=== PATIENT | male | born 1960 | race Caucasian/White ===

== ENCOUNTER → 2016-10-04 | Outpatient (REF) | payer OTHER | LOC: M SFHCCLAY 14:47 | PROVIDERS: ATTEND Physician Assistant | DX: R35.1 Nocturia (principal) ==

== ENCOUNTER → 2016-10-04 | Outpatient (REF) | payer OTHER ==
[2016-10-04 19:35] LABS: FOLATE 10.7 NG/ML (>5.4)
== END ==
LOC: M LABDRAWC 16:28
PROVIDERS: ATTEND Internal Medicine Endocrinology, Diabetes & Metabolism
DX: E11.9 Type 2 diabetes mellitus without complications (principal)

== ENCOUNTER → 2017-03-30 | Outpatient (REF) | payer OTHER ==
[2017-03-30 20:05] LABS: BASO % 0.6 % (0.0-1.0); EOS # 0.1 K/mm3 (0.0-0.50); EOS % 2.9 % (0.0-3.0); LARGE UNSTAINED CELL # 0.3 K/mm3 (0.0-0.4); LARGE UNSTAINED CELL % 7.3 % (0.0-4.0); LYMPH # 0.9 K/mm3 (1.5-4.5); LYMPH % 24.1 % (24.0-44.0); MEAN CORPUSCULAR HEMOGLOBIN 33.7 pg (27.0-33.0); MEAN CORPUSCULAR HGB CONC 36.4 g/dl (32.0-36.5); MEAN CORPUSCULAR VOLUME 92.5 fl (80.0-96.0); MONO # 0.4 K/mm3 (0.0-0.8); MONO % 10.2 % (0.0-5.0); NEUTROPHILS # 2.1 K/mm3 (1.8-7.7); PLATELET COUNT, AUTOMATED 119 k/mm3 (150-450); RED CELL DISTRIBUTION WIDTH 12.3 % (11.5-14.5); WHITE BLOOD COUNT 3.8 K/mm3 (4.0-10.0)
[2017-03-30 20:20] LABS: ALBUMIN 4.1 GM/DL (3.2-5.2); ALBUMIN/GLOBULIN RATIO 1.24 (1.00-1.93); ALKALINE PHOSPHATASE 91 U/L (45-117); ALT/SGPT 163 U/L (12-78); ANION GAP 13 MEQ/L (8-16); AST/SGOT 131 U/L (15-37); BILIRUBIN,TOTAL 1.7 MG/DL (0.2-1.0); BLOOD UREA NITROGEN 10 MG/DL (7-18); CALCIUM LEVEL 9.4 MG/DL (8.5-10.1); CARBON DIOXIDE LEVEL 30 MEQ/L (21-32); CHLORIDE LEVEL 96 MEQ/L (98-107); CHOLESTEROL LEVEL 201 MG/DL (<200); FREE T4 1.22 NG/DL (0.76-1.46); GLOMERULAR FILTRATION RATE > 60.0 (>56); GLUCOSE, FASTING 135 MG/DL (70-105); POTASSIUM SERUM 3.1 MEQ/L (3.5-5.1); SODIUM LEVEL 139 MEQ/L (136-145); TOTAL PROTEIN 7.4 GM/DL (6.4-8.2); TRIGLYCERIDES LEVEL 268 MG/DL (<150)
== END ==
LOC: M SFHCCLAY 09:56
PROVIDERS: ATTEND Physician Assistant
DX: E78.1 Pure hyperglyceridemia (principal); I10 Essential (primary) hypertension; E11.9 Type 2 diabetes mellitus without complications

== ENCOUNTER → 2017-05-03 | Outpatient (REF) | payer OTHER | LOC: M SMT 16:51 | PROVIDERS: ATTEND Nurse Practitioner Women's Health | DX: R39.15 Urgency of urination (principal) ==

== ENCOUNTER → 2017-07-12 | Outpatient (REF) | payer OTHER ==
[2017-07-12 17:00] LABS: BASO # 0.1 10^3/uL (0.0-0.2); BASO % 1.1 % (0.0-1.0); EOS # 0.1 10^3/uL (0.0-0.50); EOS % 2.6 % (0.0-3.0); IMMATURE GRANULOCYTE % 0.2 % (0-0); LYMPH # 0.8 10^3/uL (1.5-4.5); LYMPH % 16.5 % (24.0-44.0); MEAN CORPUSCULAR HEMOGLOBIN 32.4 pg (27.0-33.0); MEAN CORPUSCULAR HGB CONC 35.2 g/dl (32.0-36.5); MONO # 0.7 10^3/uL (0.0-0.8); MONO % 15.6 % (0.0-5.0); NEUTROPHILS # 2.9 10^3/uL (1.8-7.7); PLATELET COUNT, AUTOMATED 114 10^3/uL (150-450); RED CELL DISTRIBUTION WIDTH 12.4 % (11.5-14.5); WHITE BLOOD COUNT 4.5 10^3/uL (4.0-10.0)
[2017-07-12 17:14] LABS: ALBUMIN 4.2 GM/DL (3.2-5.2); ALBUMIN/GLOBULIN RATIO 1.24 (1.00-1.93); ALKALINE PHOSPHATASE 83 U/L (45-117); ALT/SGPT 215 U/L (12-78); ANION GAP 11 MEQ/L (8-16); AST/SGOT 198 U/L (7-37); BILIRUBIN,TOTAL 1.8 MG/DL (0.2-1.0); BLOOD UREA NITROGEN 13 MG/DL (7-18); CALCIUM LEVEL 9.5 MG/DL (8.5-10.1); CARBON DIOXIDE LEVEL 33 MEQ/L (21-32); CHLORIDE LEVEL 97 MEQ/L (98-107); CREATININE FOR GFR 0.56 MG/DL (0.70-1.30); GLOMERULAR FILTRATION RATE > 60.0 (>56); GLUCOSE, FASTING 101 MG/DL (70-105); SODIUM LEVEL 141 MEQ/L (136-145); TOTAL PROTEIN 7.6 GM/DL (6.4-8.2)
== END ==
LOC: M SFHCCAPE 11:05
PROVIDERS: ATTEND Physician Assistant
DX: E87.6 Hypokalemia (principal); Z11.59 Encounter for screening for other viral diseases; Z11.4 Encounter for screening for human immunodeficiency virus [HIV]; E11.40 Type 2 diabetes mellitus with diabetic neuropathy, unspecified; R79.89 Other specified abnormal findings of blood chemistry

== ENCOUNTER → 2017-08-02 | Outpatient (REF) | payer OTHER ==
[2017-08-02 16:39] LABS: ALBUMIN 4.4 GM/DL (3.2-5.2); ALBUMIN/GLOBULIN RATIO 1.42 (1.00-1.93); ALKALINE PHOSPHATASE 95 U/L (45-117); ALT/SGPT 73 U/L (12-78); ANION GAP 15 MEQ/L (8-16); AST/SGOT 93 U/L (7-37); BILIRUBIN,TOTAL 3.8 MG/DL (0.2-1.0); BLOOD UREA NITROGEN 20 MG/DL (7-18); CALCIUM LEVEL 8.9 MG/DL (8.5-10.1); CARBON DIOXIDE LEVEL 29 MEQ/L (21-32); CHLORIDE LEVEL 91 MEQ/L (98-107); CREATININE FOR GFR 1.07 MG/DL (0.70-1.30); GLOMERULAR FILTRATION RATE > 60.0 (>56); GLUCOSE, FASTING 218 MG/DL (70-105); SODIUM LEVEL 135 MEQ/L (136-145); TOTAL PROTEIN 7.5 GM/DL (6.4-8.2)
[2017-08-02 16:56] LABS: POTASSIUM SERUM 2.7 MEQ/L (3.5-5.1)
== END ==
LOC: M SFHCCAPE 09:07
DX: E87.6 Hypokalemia (principal)
CPT/HCPCS: 80053

== ENCOUNTER → 2017-08-18 | Outpatient (REF) | payer OTHER ==
[2017-08-18 17:19] LABS: INR 1.03; PROTHROMBIN TIME 13.6 SECONDS (12.4-14.5)
[2017-08-18 17:20] LABS: PARTIAL THROMBOPLASTIN TIME 37.8 SECONDS (26.8-37.9)
[2017-08-18 17:54] LABS: ALBUMIN 4.3 GM/DL (3.2-5.2); ALBUMIN/GLOBULIN RATIO 1.26 (1.00-1.93); ALKALINE PHOSPHATASE 94 U/L (45-117); ALT/SGPT 192 U/L (12-78); AST/SGOT 131 U/L (7-37); BILIRUBIN,DIRECT 0.5 MG/DL (0.0-0.2); BILIRUBIN,TOTAL 1.2 MG/DL (0.2-1.0); FERRITIN 130 NG/ML (26-388); IRON (FE) 105 UG/DL (65-175); PERCENT SATURATION 24.6 % (19.7-50.0); TOTAL IRON BINDING CAPACITY 427 UG/DL (250-450); TOTAL PROTEIN 7.7 GM/DL (6.4-8.2)
[2017-08-19 10:04] LABS: HEPATITIS B SURFACE ANTIBODY NEGATIVE (POSITIVE)
== END ==
LOC: M LAB REF 17:00
DX: R94.5 Abnormal results of liver function studies (principal)

== ENCOUNTER → 2017-08-23 | Outpatient (REF) | payer OTHER ==
[2017-08-23 19:11] LABS: ANION GAP 7 MEQ/L (8-16); BLOOD UREA NITROGEN 16 MG/DL (7-18); CALCIUM LEVEL 9.5 MG/DL (8.5-10.1); CARBON DIOXIDE LEVEL 31 MEQ/L (21-32); CHLORIDE LEVEL 102 MEQ/L (98-107); CREATININE FOR GFR 0.73 MG/DL (0.70-1.30); GLOMERULAR FILTRATION RATE > 60.0 (>56); GLUCOSE, FASTING 86 MG/DL (70-100); POTASSIUM SERUM 3.9 MEQ/L (3.5-5.1); SODIUM LEVEL 140 MEQ/L (136-145)
== END ==
LOC: M SFHCCAPE 10:57
DX: E87.6 Hypokalemia (principal)
CPT/HCPCS: 80048

== ENCOUNTER → 2017-08-25 | Outpatient (REF) | payer OTHER ==
[2017-08-25 21:08] LABS: HEMATOCRIT 47.5 % (42.0-52.0)
[2017-08-26 10:55] LABS: FOLATE 8.7 NG/ML; VITAMIN B12 LEVEL 609 PG/ML
[2017-08-26 12:51] LABS: PRETREATED FOLATE FOR RBCFOL 13.8 NG/ML; RBC FOLATE 610.1 NG/ML (280-791)
[2017-08-27 15:10] LABS: ANTINUCLEAR ANTIBODIES DIRECT Negative (Negative)
== END ==
LOC: M LAB REF 17:39
DX: D69.6 Thrombocytopenia, unspecified (principal)

== ENCOUNTER 2017-09-27 07:01 | Day surgery (SDC) | payer OTHER ==
[2017-09-27] MEDS ORDERED: PROPOFOL 200 MG/20 ML VIAL As Ordered (07:24)
[2017-09-27] MEDS ORDERED: NS 1,000 ML IV (07:45)
[2017-09-27 07:49] LABS: BEDSIDE GLUCOSE 94 MG/DL (70-105)
[2017-09-27] MEDS ORDERED: LIDOCAINE 2% INJ 100 MG/5 ML SDV (FOR ANES.) As Ordered (07:59)
== END 2017-09-27 09:45 | disposition home or self-care (01) ==
LOC: M OPP 07:01
DX: Z12.11 Encounter for screening for malignant neoplasm of colon (principal); K64.8 Other hemorrhoids; I10 Essential (primary) hypertension; R01.1 Cardiac murmur, unspecified; E11.9 Type 2 diabetes mellitus without complications; M10.9 Gout, unspecified; K21.9 Gastro-esophageal reflux disease without esophagitis; R12 Heartburn; M19.90 Unspecified osteoarthritis, unspecified site; L40.9 Psoriasis, unspecified; G62.9 Polyneuropathy, unspecified; G47.00 Insomnia, unspecified; R06.83 Snoring; F10.11 Alcohol abuse, in remission; R39.15 Urgency of urination; Z87.891 Personal history of nicotine dependence; Z79.899 Other long term (current) drug therapy; Z79.4 Long term (current) use of insulin; Z80.8 Family history of malignant neoplasm of other organs or systems
CPT/HCPCS: 45378

== ENCOUNTER → 2017-10-12 | Outpatient (REF) | payer OTHER ==
[2017-10-12 17:58] LABS: ALBUMIN 4.2 GM/DL (3.2-5.2); ALBUMIN/GLOBULIN RATIO 1.31 (1.00-1.93); ALKALINE PHOSPHATASE 96 U/L (45-117); ALT/SGPT 30 U/L (12-78); ANION GAP 9 MEQ/L (8-16); AST/SGOT 28 U/L (7-37); BILIRUBIN,DIRECT 0.3 MG/DL (0.0-0.2); BILIRUBIN,TOTAL 1.1 MG/DL (0.2-1.0); BLOOD UREA NITROGEN 21 MG/DL (7-18); CALCIUM LEVEL 9.1 MG/DL (8.5-10.1); CARBON DIOXIDE LEVEL 29 MEQ/L (21-32); CHLORIDE LEVEL 103 MEQ/L (98-107); CREATININE FOR GFR 0.74 MG/DL (0.70-1.30); GLOMERULAR FILTRATION RATE > 60.0 (>56); GLUCOSE, FASTING 97 MG/DL (70-100); PHOSPHORUS LEVEL 3.6 MG/DL (2.5-4.9); POTASSIUM SERUM 3.5 MEQ/L (3.5-5.1); RHEUMATOID FACTOR QUANT < 10.0 IU/ML (<15.0); SODIUM LEVEL 141 MEQ/L (136-145); TOTAL PROTEIN 7.4 GM/DL (6.4-8.2)
[2017-10-12 18:23] LABS: APPEARANCE, URINE CLEAR (CLEAR); BACTERIA, URINE AUTO NEGATIVE (NEGATIVE); BILIRUBIN, URINE AUTO NEGATIVE (NEGATIVE); BLOOD, URINE BLOOD NEGATIVE (NEGATIVE); COLOR, URINE YELLOW (YELLOW); GLUCOSE, URINE (UA) AUTO 2+ mg/dL (NEGATIVE); KETONE, URINE AUTO NEGATIVE (NEGATIVE); LEUKOCYTE ESTERASE, URINE AUTO NEGATIVE (NEGATIVE); NITRITE, URINE AUTO NEGATIVE (NEGATIVE); PROTEIN, URINE AUTO NEGATIVE (NEGATIVE); RBC, URINE AUTO 0 /HPF (0-3); SPECIFIC GRAVITY URINE AUTO 1.016 (1.002-1.035); SQUAMOUS EPITHELIAL CELL UR AU 0 /HPF (0-6); UROBILINOGEN, URINE AUTO 0.2 mg/dL (0.0-2.0); WBC, URINE AUTO 0 /HPF (0-3)
[2017-10-12 18:36] LABS: BASO % 0.6 % (0.0-1.0); EOS # 0.2 10^3/uL (0.0-0.50); EOS % 3.9 % (0.0-3.0); HEMATOCRIT 43.7 % (42.0-52.0); HEMOGLOBIN 15.2 g/dl (14.0-18.0); IMMATURE GRANULOCYTE % 0.2 % (0-3.0); LYMPH # 1.2 10^3/uL (1.5-4.5); LYMPH % 22.5 % (24.0-44.0); MEAN CORPUSCULAR HEMOGLOBIN 29.6 pg (27.0-33.0); MEAN CORPUSCULAR HGB CONC 34.8 g/dl (32.0-36.5); MEAN CORPUSCULAR VOLUME 85.2 fl (80.0-96.0); MONO # 0.8 10^3/uL (0.0-0.8); MONO % 14.9 % (0.0-5.0); NEUTROPHILS % 57.9 % (36.0-66.0); PLATELET COUNT, AUTOMATED 126 10^3/uL (150-450); RED BLOOD COUNT 5.13 10^6/uL (4.30-6.10); RED CELL DISTRIBUTION WIDTH 11.5 % (11.5-14.5); WHITE BLOOD COUNT 5.2 10^3/uL (4.0-10.0)
[2017-10-12 19:41] LABS: ERYTHROCYTE SEDIMENTATION RATE 4 mm/hr (0-20)
[2017-10-15 00:07] LABS: ANGIOTENSIN 1 CONVERTING ENZYM 4 U/L (14-82); ANTI DOUBLE STRAND-DNA AB 1 IU/mL (0-9); ANTINUCLEAR ANTIBODIES DIRECT Negative (Negative); SJOGREN'S ANTI SS-A <0.2 AI (0.0-0.9); SJOGREN'S ANTI SS-B <0.2 AI (0.0-0.9)
== END ==
LOC: M LABDRWCV 16:39
DX: L92.8 Other granulomatous disorders of the skin and subcutaneous tissue (principal)

== ENCOUNTER → 2017-11-15 | Outpatient (REF) | payer OTHER ==
[2017-11-15 18:40] LABS: HEMATOCRIT 43.5 % (42.0-52.0); HEMOGLOBIN 14.9 g/dl (13.5-17.5); MEAN CORPUSCULAR HEMOGLOBIN 28.9 pg (27.0-33.0); MEAN CORPUSCULAR HGB CONC 34.3 g/dl (32.0-36.5); MEAN CORPUSCULAR VOLUME 84.5 fl (80.0-96.0); PLATELET COUNT, AUTOMATED 139 10^3/uL (150-450); RED BLOOD COUNT 5.15 10^6/uL (4.30-6.10); RED CELL DISTRIBUTION WIDTH 12.3 % (11.5-14.5); WHITE BLOOD COUNT 4.6 10^3/uL (4.0-10.0)
[2017-11-15 18:57] LABS: ALBUMIN 3.8 GM/DL (3.2-5.2); ALBUMIN/GLOBULIN RATIO 1.15 (1.00-1.93); ALKALINE PHOSPHATASE 99 U/L (45-117); ALT/SGPT 25 U/L (12-78); ANION GAP 7 MEQ/L (8-16); AST/SGOT 26 U/L (7-37); BILIRUBIN,TOTAL 0.7 MG/DL (0.2-1.0); BLOOD UREA NITROGEN 10 MG/DL (7-18); CALCIUM LEVEL 9.1 MG/DL (8.5-10.1); CARBON DIOXIDE LEVEL 30 MEQ/L (21-32); CHLORIDE LEVEL 105 MEQ/L (98-107); CHOLESTEROL LEVEL 172 MG/DL (<200); CHOLESTEROL RISK RATIO 4.648 (<5); CREATININE FOR GFR 0.68 MG/DL (0.70-1.30); GLOMERULAR FILTRATION RATE > 60.0 (>56); GLUCOSE, FASTING 129 MG/DL (70-100); HDL CHOLESTEROL 37 MG/DL (>40); NON-HDL-C 135 MG/DL; POTASSIUM SERUM 3.6 MEQ/L (3.5-5.1); SODIUM LEVEL 142 MEQ/L (136-145); TOTAL PROTEIN 7.1 GM/DL (6.4-8.2); TRIGLYCERIDES LEVEL 150 MG/DL (<150)
== END ==
LOC: M LABDRAWC 16:40
DX: E11.21 Type 2 diabetes mellitus with diabetic nephropathy (principal)

== ENCOUNTER → 2017-11-16 | Outpatient (REF) | payer OTHER ==
[2017-11-16 20:02] LABS: MALB URINE SIEMENS 6.4 MG/L
[2017-11-16 20:31] LABS: MAU 24HR URINE 8.3 MG/24HR (0.0-30.0); MAU/MINUTE 5.8 MCG/MIN (0.0-20.0); TOTAL VOLUME, URINE 1300 ML
== END ==
LOC: M LAB REF 16:39
DX: E11.21 Type 2 diabetes mellitus with diabetic nephropathy (principal)

== ENCOUNTER → 2017-11-22 | Outpatient (REF) | payer OTHER | LOC: M LAB REF 15:31 | DX: D48.5 Neoplasm of uncertain behavior of skin (principal) ==

== ENCOUNTER → 2018-08-03 | Outpatient (REF) | payer OTHER ==
[~2018-08-03] MED LIST: CHLO125TA; DULO1CAP3; JARD1TAB3; LANTINJ4; LYRI200C; METF10004; OMEP20CA3; POTA1TAB23; QUIN1TAB4; VICT18IN; ZOLP10TA2
[2018-08-03 17:51] LABS: APPEARANCE, URINE CLEAR (CLEAR); BACTERIA, URINE AUTO NEGATIVE (NEGATIVE); BILIRUBIN, URINE AUTO NEGATIVE (NEGATIVE); BLOOD, URINE BLOOD NEGATIVE (NEGATIVE); COLOR, URINE YELLOW (YELLOW); GLUCOSE, URINE (UA) AUTO 3+ mg/dL (NEGATIVE); KETONE, URINE AUTO NEGATIVE (NEGATIVE); LEUKOCYTE ESTERASE, URINE AUTO NEGATIVE (NEGATIVE); NITRITE, URINE AUTO NEGATIVE (NEGATIVE); PROTEIN, URINE AUTO NEGATIVE (NEGATIVE); RBC, URINE AUTO 0 /HPF (0-3); SPECIFIC GRAVITY URINE AUTO 1.026 (1.002-1.035); SQUAMOUS EPITHELIAL CELL UR AU 0 /HPF (0-6); UROBILINOGEN, URINE AUTO 0.2 mg/dL (0.0-2.0); WBC, URINE AUTO 0 /HPF (0-3)
[2018-08-03 20:31] LABS: CHLAMYDIA DNA AMPLIFICATION NEGATIVE (NEGATIVE); GC DNA AMPLIFICATION NEGATIVE (NEGATIVE)
== END ==
LOC: M SFHCCAPE 15:02
PROVIDERS: ATTEND Physician Assistant
DX: R30.0 Dysuria (principal)

== ENCOUNTER 2018-09-06 16:05 | Day surgery (SDC) | payer OTHER ==
[~2018-09-06] VITALS: Ht 172.7 cm; Wt 96.0 kg
[2018-09-06 17:37] LABS: BASO % 0.3 % (0.0-1.0); EOS # 0.2 10^3/uL (0.0-0.50); EOS % 1.7 % (0.0-3.0); HEMATOCRIT 46.9 % (42.0-52.0); HEMOGLOBIN 16.4 g/dl (13.5-17.5); LYMPH # 1.3 10^3/uL (1.5-4.5); LYMPH % 9.7 % (24.0-44.0); MEAN CORPUSCULAR HEMOGLOBIN 31.5 pg (27.0-33.0); MEAN CORPUSCULAR VOLUME 90.2 fl (80.0-96.0); MONO # 1.6 10^3/uL (0.0-0.8); MONO % 11.9 % (0.0-5.0); NEUTROPHILS # 10.5 10^3/uL (1.8-7.7); PLATELET COUNT, AUTOMATED 106 10^3/uL (150-450); WHITE BLOOD COUNT 13.8 10^3/uL (4.0-10.0)
[2018-09-06 18:09] LABS: ALBUMIN 4.2 GM/DL (3.2-5.2); ALT/SGPT 30 U/L (12-78); BILIRUBIN,DIRECT 0.7 MG/DL (0.0-0.2); BILIRUBIN,TOTAL 3.5 MG/DL (0.2-1.0); BLOOD UREA NITROGEN 11 MG/DL (7-18); CALCIUM LEVEL 8.9 MG/DL (8.5-10.1); CARBON DIOXIDE LEVEL 33 MEQ/L (21-32); CHLORIDE LEVEL 96 MEQ/L (98-107); CREATININE FOR GFR 0.82 MG/DL (0.70-1.30); GLOMERULAR FILTRATION RATE > 60.0 (>56); GLUCOSE, FASTING 120 MG/DL (70-100); LIPASE 144 U/L (73-393); SODIUM LEVEL 137 MEQ/L (136-145); TOTAL PROTEIN 7.2 GM/DL (6.4-8.2)
[2018-09-06] MEDS ORDERED: KETOROLAC 30 MG/ML VIAL (J1885) IV ONE (19:00)
[2018-09-06] MEDS ORDERED: ISOVUE-370 76% 100ML VIAL (Q9967) As Ordered ONE (19:33)
--- NOTE | 2018-09-06 20:54 | REPVR ---
EXAM: CT Abdomen and Pelvis With Contrast EXAM DATE/TIME: 09/06/2018 7:38 PM CLINICAL HISTORY: 58 years old, male; Pain; Abdominal pain; Additional info: Rlq pain, ? appe TECHNIQUE: Axial computed tomography images of the abdomen and pelvis with intravenous contrast. All CT scans at this facility use at least one of these dose optimization techniques: automated exposure control; mA and/or kV adjustment per patient size (includes targeted exams where dose is matched to clinical indication); or iterative reconstruction. Coronal and sagittal reformatted images were created and reviewed. CONTRAST: 100 ml of ISOVUE 370 administered intravenously. COMPARISON: No relevant prior studies available. FINDINGS: Lower thorax: Scattered nodules are identified within the lungs bilaterally. Within the left lung, there is a 7-8 mm paratracheal nodule on series 204 image 3. ABDOMEN: Liver: There is hypodense fatty infiltration of the liver. Calcific densities are identified posterior to the right hepatic lobe, with possible involvement of the hepatic capsule. Gallbladder and bile ducts: Surgical clips are identified within the gallbladder fossa, compatible with cholecystectomy. Pancreas: Normal. No ductal dilation. Spleen: Splenomegaly. The spleen measures 14.8 cm in length. A splenule is identified posterior to the spleen. Adrenals: No mass. Kidneys and ureters: Nonspecific perinephric stranding bilaterally. No hydronephrosis bilaterally. Stomach and bowel: There is borderline wall thickening and mild distention of the distal ileum, suggestive of enteritis. Appendix: The appendix is distended measuring 1.1 cm in diameter. There is acute periappendiceal stranding and fluid which extends to the paracolic gutter. This is consistent with acute appendicitis. PELVIS: Bladder: Mild nonspecific wall thickening. Reproductive: Unremarkable as visualized. ABDOMEN and PELVIS: Intraperitoneal space: No free air. Bones/joints: Hypertrophic degenerative changes are noted within the spine. There is mild anterior wedging of the T11 vertebral body consistent with a compression fracture/deformity. The acuity of this finding is indeterminate. Mild convexity of the lumbar spine to the left. Soft tissues: Mild herniation of fat into the inguinal canals. There is a 1 cm nodule is noted within the right inguinal canal. Vasculature: There is atherosclerotic calcification of the abdominal aorta and iliac arteries. Lymph nodes: Calcified mediastinal and hilar lymph nodes are visualized, suggestive of granulomatous disease. Mildly enlarged retroperitoneal and intrapelvic lymph nodes are identified. A mildly enlarged right external iliac chain lymph node measures 1.7x 1.0 centimeters. IMPRESSION: 1. The appendix is distended with acute periappendiceal stranding and fluid, consistent with acute appendicitis. 2. There is borderline wall thickening and mild distention of the distal ileum, suggestive of enteritis. 3. Scattered nodules are identified within the lungs bilaterally. A nonemergent chest CT is recommended. 4. There is hypodense fatty infiltration of the liver. 5. Splenomegaly. 6. Mildly enlarged retroperitoneal and intrapelvic lymph nodes are identified. 7. There is mild anterior wedging of the T11 vertebral body consistent with a compression fracture/deformity. The acuity of this finding is indeterminate. Clinical correlation is recommended. 8. Additional findings described above. Electronically signed by: Manuel Fuller On 09/06/2018 20:54:13 PM
[2018-09-06] MEDS ORDERED: NS 1,000 ML IV ONE (21:15)
[2018-09-06] MEDS ORDERED: MORPHINE 2 MG/ML 1ML SYRINGE (J2270) IV ONE (21:15)
[2018-09-06] MEDS ORDERED: VICT18IN SC (21:31)
[2018-09-06] MEDS ORDERED: LYRI200C PO (21:31)
[2018-09-06] MEDS ORDERED: CHLO25TA PO (21:31)
[2018-09-06] MEDS ORDERED: JARD1TAB3 PO (21:31)
[2018-09-06] MEDS ORDERED: LANTINJ4 SC (21:31)
[2018-09-06] MEDS ORDERED: METF10004 PO (21:31)
[2018-09-06] MEDS ORDERED: DULO1CAP3 PO (21:31)
[2018-09-06] MEDS ORDERED: QUIN1TAB4 PO (21:31)
[2018-09-06] MEDS ORDERED: OMEP20CA3 PO (21:31)
[2018-09-06] MEDS ORDERED: ZOLP10TA2 PO (21:31)
[2018-09-06] MEDS ORDERED: CHLO125TA PO (21:35)
--- NOTE | 2018-09-06 22:01 | ED PDOC ---
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 CHARY EVANGELISTA PA-C Sep 06, 2018 22:01
[2018-09-06] MEDS ORDERED: MORPHINE 4 MG/ML 1ML VIAL/SYRINGE (J2270) IV PRN (22:45)
[2018-09-06] MEDS ORDERED: ACETAMINOPHEN TAB 650MG DOSE (2X325MG) PO PRN (22:45)
[2018-09-06] MEDS ORDERED: KETOROLAC 30 MG/ML VIAL (J1885) IV PRN (22:45)
[2018-09-06] MEDS ORDERED: ONDANSETRON 4MG/2ML VIAL (J2405) IV PRN (22:45)
[2018-09-07] MEDS ORDERED: LIDOCAINE 2% INJ 100 MG/5 ML SDV (FOR ANES.) As Ordered ONE (00:21)
[2018-09-07] MEDS ORDERED: dexameTHASONE 4 MG/ML 1ML VIAL (J1100) As Ordered ONE (00:21)
[2018-09-07] MEDS ORDERED: MIDAZOLAM INJ 2 MG/2 ML VIAL (J2250) As Ordered ONE (00:21)
[2018-09-07] MEDS ORDERED: ONDANSETRON 4MG/2ML VIAL (J2405) As Ordered ONE (00:21)
[2018-09-07] MEDS ORDERED: PROPOFOL 200 MG/20 ML VIAL As Ordered ONE (00:21)
[2018-09-07] MEDS ORDERED: ROCURONIUM BROMIDE 50 MG/5 ML VIAL As Ordered ONE (00:21)
[2018-09-07] MEDS ORDERED: BUPIVACAINE HCL 0.25% 30 ML VIAL As Ordered ONE (00:22)
[2018-09-07] MEDS ORDERED: ZOSYN 3.375 GM VIAL (J2543) As Ordered ONE (00:23)
[2018-09-07] MEDS ORDERED: fentaNYL 100 MCG/2 ML INJECTION (J3010) As Ordered ONE (00:30)
[2018-09-07] MEDS ORDERED: KETOROLAC 60 MG/2 ML VIAL (J1885) As Ordered ONE (00:49)
[2018-09-07] MEDS ORDERED: GLYCOPYRROLATE INJ 0.2 MG/ML 2 ML VIAL As Ordered ONE (00:49)
[2018-09-07] MEDS ORDERED: NEOSTIGMINE 10 MG/10 ML VIAL (J2710) As Ordered ONE (00:49)
[2018-09-07] MEDS ORDERED: LR 1,000 ML IV SCH (03:45)
[2018-09-07] MEDS ORDERED: ONDANSETRON 4MG/2ML VIAL (J2405) IV PRN (03:45)
[2018-09-07] MEDS ORDERED: fentaNYL 100 MCG/2 ML INJECTION (J3010) IV PRN (03:45)
[2018-09-07 03:48] VITALS: BP 117/74
[2018-09-07] MEDS: LR 1,000 ML IV SCH ×2 (05:08→06:41)
[2018-09-07] MEDS: PIPERACILLIN/TAZOBACTAM SOD 3.375 GM in D5W MINI-BAG PLUS 50 ML IV SCH ×4 (05:08→12:19)
[2018-09-07 08:00] VITALS: BP 104/62
[2018-09-07] MEDS: NORCO, ANEXSIA 5/325MG TABLET (HYDROcodone/ACETAMINOPHEN) PO PRN ×2 (08:50→13:47)
[2018-09-07] MEDS ORDERED: QUINAPRIL 20 MG TAB PO SCH (09:00)
[2018-09-07] MEDS ORDERED: CHLORTHALIDONE 12.5MG PER 1/2 TABLET PO SCH (09:00)
[2018-09-07] MEDS ORDERED: PREGABALIN 100 MG CAP (LYRICA) PO SCH (09:00)
[2018-09-07] MEDS ORDERED: metFORMIN (GLUCOPHAGE) 1000 MG TABLET PO SCH ×2 (09:00→21:00)
[2018-09-07 09:59] LABS: BASO % 0.2 % (0.0-1.0); HEMATOCRIT 43.9 % (42.0-52.0); LYMPH # 0.6 10^3/uL (1.5-4.5); LYMPH % 4.7 % (24.0-44.0); MEAN CORPUSCULAR HEMOGLOBIN 31.3 pg (27.0-33.0); MEAN CORPUSCULAR HGB CONC 34.2 g/dl (32.0-36.5); MEAN CORPUSCULAR VOLUME 91.5 fl (80.0-96.0); MONO # 0.5 10^3/uL (0.0-0.8); MONO % 3.8 % (0.0-5.0); NEUTROPHILS # 11.1 10^3/uL (1.8-7.7); NEUTROPHILS % 90.5 % (36.0-66.0); PLATELET COUNT, AUTOMATED 100 10^3/uL (150-450); WHITE BLOOD COUNT 12.3 10^3/uL (4.0-10.0)
[2018-09-07 10:00] VITALS: BP 127/73
[2018-09-07 10:33] VITALS: BP 127/73
[2018-09-07] MEDS ORDERED: SLF 3 ML SYR IV PRN (11:00)
[2018-09-07] MEDS ORDERED: BACT800T5 PO (12:45)
[2018-09-07] MEDS ORDERED: FLAG500T PO (12:45)
[2018-09-07] MEDS ORDERED: SLF 3 ML SYR IV SCH (14:00)
--- NOTE | 2018-09-08 17:42 | IPN ---
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 The appendix was retrocecal and quite inflamed. There appeared to be some areas of possible gangrene, and there was a small amount of purulence released into the space around the appendix. This was all copiously irrigated, and is continued on Zosyn for antibiotic coverage. VITAL SIGNS: The patient has been afebrile since surgery. His pulse is in the 60s and 70s, and his blood pressure is good. Room air oxygen saturation is normal. He has remained in the intensive care unit, as this was the only available bed when he was admitted. INTAKE AND OUTPUT: The patient has taken clear liquids very well today. His urine output is good. PHYSICAL EXAMINATION: The patient is sitting up in a chair looking quite comfortable. He is alert and oriented. Heart exam shows a regular rhythm. The lungs are clear. The abdomen is somewhat protuberant, and he has active bowel sounds. The abdomen is generally soft and without significant tenderness. LABORATORY STUDIES: The patient had a CBC this morning at 9:30 that showed a white count of 12 with a hemoglobin of 15, hematocrit of 44, and a platelet count of 100,000. His differential count showed 90% neutrophils, 5% lymphocytes, and 4% monocytes. IMPRESSION: The patient is doing well now, approximately 12 hours postoperative for laparoscopic appendectomy for acute appendicitis. There was some spillage of a limited amount of purulence into the retrocecal space, and this was irrigated and he was continued on antibiotics. His white blood cell count is down a little bit from last night, and he has been afebrile. PLAN: The patient appears to be doing well enough to go home. I will discharge him on 5 days of Bactrim and Flagyl for antibiotic coverage. He was instructed to resume all of his usual medications with the exception of his metformin, which he should hold because of his intravenous (IV) contrast until tomorrow evening. He can take a diet as tolerated. He was advised to avoid any strenuous physical activity or lifting greater than 25 pounds for 2 weeks. He should followup with me in the office in a week to 10 days or call sooner for problems.
--- NOTE | 2018-09-08 17:54 | RO ---
DATE OF PROCEDURE: 09/07/2018 PREOPERATIVE DIAGNOSIS: Acute appendicitis. POSTOPERATIVE DIAGNOSIS: Acute appendicitis. PROCEDURE PERFORMED: Laparoscopic appendectomy. SURGEON: Dr. Kobe Valenzuela AUTOMATION SALES MANAGER: ANESTHESIA: General. INDICATIONS FOR THE PROCEDURE: The patient is a 58-year-old man who presented to the emergency department with a roughly 1-1/2-day history of abdominal pain which had become localized to the right lower quadrant. He had moderate to marked tenderness in the lateral right lower quadrant and a CT scan was consistent with appendicitis. He is now for a laparoscopic appendectomy. DESCRIPTION OF PROCEDURE: The patient was placed supine on the operating table. He was placed under general endotracheal anesthesia. The abdomen was prepped and draped in a sterile fashion. 0.25% Marcaine was infiltrated at each of the trocar sites. A short transverse infraumbilical incision was made and deepened into the subcutaneous tissues. The patient had a small hernia at this level, and the umbilical skin was elevated somewhat to gain access to the hernia defect and a 12 mm trocar was placed through this hernia. The abdomen was inflated with carbon dioxide gas and the laparoscope was placed. The liver was noted and appeared perhaps minimally nodular. The small and large bowel were seen. There was no free fluid. The patient was tilted to a Trendelenburg position and rolled slightly to the left. A 5 mm trocar was placed in the left lower quadrant and another 5 mm trocar was placed low in the midline. Graspers were inserted. Exploration revealed that the appendix was coiled just inferior and posterior to the cecum. The appendix was quite adherent, and it was necessary to break apart some inflammatory adhesions then actually lyse some peritoneal attachments to free the appendix from the retroperitoneum. The appendix was clearly markedly inflamed almost down to the base of the appendix. The attachments of the appendix were divided. Several vascular structures were identified, and these were clipped with hemoclips prior to cauterizing the tissue. It was necessary to apply some traction to the appendix to try to elevate this up out of the retrocecal space. In the course of doing so, there was some purulent appearing fluid in minimal amount that was released. This was thoroughly irrigated and copious irrigation was used in the right lower quadrant. Once the appendix had been freed, to include the base, a 45 mm endoscopic linear stapler with blue load was inserted and placed across the base of the appendix, closed and fired. The appendix was placed in an Endopouch. The right lower quadrant was again irrigated and hemostasis was ensured. The patient was returned to a largely flat position, and the abdomen was deflated and the trocars were removed. The appendix was recovered through the umbilical incision. This was sent for permanent pathology. The fascia from beneath the umbilicus was freed, and the hernia was closed with interrupted simple sutures of #2-0 Vicryl. The umbilical skin was approximated with #5-0 Vicryl. The two smaller incisions were also closed with buried #5-0 Vicryl and Steri-Strips. Light dressings were applied. The patient tolerated the procedure well. He was awakened in the operating room, extubated and moved to the recovery room in stable condition.
[2018-09-08] MEDS ORDERED: metFORMIN (GLUCOPHAGE) 1000 MG TABLET PO SCH (21:00)
== END 2018-09-07 14:19 | disposition home or self-care (01) ==
LOC: M ED 16:05 → M SDC 22:41 → M ICU 09-07 03:34 → M SDC 09-07 14:19
PROVIDERS: ATTEND Surgery
DX: K35.80 Unspecified acute appendicitis (principal); E11.9 Type 2 diabetes mellitus without complications; I10 Essential (primary) hypertension; G47.30 Sleep apnea, unspecified; K21.9 Gastro-esophageal reflux disease without esophagitis; Z79.4 Long term (current) use of insulin; Z79.899 Other long term (current) drug therapy; Z79.84 Long term (current) use of oral hypoglycemic drugs
CPT/HCPCS: 36415; 44970; 74177; 80048; 80076; 81001; 83690; 85025; 88302; 96374; 96375; 96376; 99284; J1100; J1885; J2250; J2270; J2405; J2543; J2710; J3010; Q9967

== ENCOUNTER 2019-02-09 15:15 | Emergency (ER) | payer OTHER, SELFPAY ==
[~2019-02-09] VITALS: Ht 172.7 cm; Wt 90.9 kg
[~2019-02-09 15:15] MED LIST changes: +BACT800T5 PO; +CHLO125TA PO; +CHLO25TA PO; -DULO1CAP3; +DULO1CAP6; +DULO1CAP6 PO; +FLAG500T PO; +JARD1TAB3 PO; +LANTINJ4 SC; +LYRI200C PO; +METF10004 PO; -OMEP20CA3; +OMEP20CA4; +OMEP20CA4 PO; +QUIN1TAB4 PO; +VICT18IN SC; +ZOLP10TA2 PO
[2019-02-09] MEDS ORDERED: VICT18IN2 (15:47)
[2019-02-09] MEDS ORDERED: LYRI200C PO (15:47)
[2019-02-09] MEDS ORDERED: CHLO25TA PO (15:47)
[2019-02-09 16:41] LABS: HEMATOCRIT 47.5 % (42.0-52.0); HEMOGLOBIN 16.6 g/dl (13.5-17.5); MEAN CORPUSCULAR HEMOGLOBIN 29.6 pg (27.0-33.0); MEAN CORPUSCULAR HGB CONC 34.9 g/dl (32.0-36.5); MEAN CORPUSCULAR VOLUME 84.7 fl (80.0-96.0); PLATELET COUNT, AUTOMATED 121 10^3/uL (150-450); RED BLOOD COUNT 5.61 10^6/uL (4.30-6.10); WHITE BLOOD COUNT 5.7 10^3/uL (4.0-10.0)
[2019-02-09 17:02] LABS: AMPHETAMINES LEVEL URINE NEGATIVE (NEGATIVE); BARBITURATES URINE NEGATIVE (NEGATIVE); BENZODIAZEPINES URINE NEGATIVE (NEGATIVE); CANNABINOIDS URINE POSITIVE (NEGATIVE); COCAINE METABOLITE URINE NEGATIVE (NEGATIVE); METHADONE URINE NEGATIVE (NEGATIVE); OPIATES URINE NEGATIVE (NEGATIVE); PHENCYCLIDINE URINE NEGATIVE (NEGATIVE)
[2019-02-09 17:13] LABS: BLOOD UREA NITROGEN 12 MG/DL (7-18); CREATININE FOR GFR 0.79 MG/DL (0.70-1.30); GLUCOSE, FASTING 113 MG/DL (70-100)
[2019-02-09 17:14] LABS: ACETAMINOPHEN LEVEL < 2.0 UG/ML (10.0-30.0); ALBUMIN 4.5 GM/DL (3.2-5.2); ALT/SGPT 32 U/L (12-78); BILIRUBIN,DIRECT 0.5 MG/DL (0.0-0.2); BILIRUBIN,TOTAL 2.3 MG/DL (0.2-1.0); CALCIUM LEVEL 9.5 MG/DL (8.5-10.1); CARBON DIOXIDE LEVEL 38 MEQ/L (21-32); CHLORIDE LEVEL 96 MEQ/L (98-107); ETHYL ALCOHOL (ETHANOL) < 0.003 % (0.000-0.010); GLOMERULAR FILTRATION RATE > 60.0 (>56); POTASSIUM SERUM 3.4 MEQ/L (3.5-5.1); SALICYLATE LEVEL < 1.7 MG/DL (5.0-30.0); SODIUM LEVEL 140 MEQ/L (136-145); TOTAL PROTEIN 7.8 GM/DL (6.4-8.2)
[2019-02-09] MEDS ORDERED: OXAZEPAM 15 MG CAP PO ONE (20:45)
[2019-02-09] MEDS ORDERED: OXAZEPAM 15 MG CAP PO SCH (20:45)
[2019-02-09 21:05] VITALS: BP 162/90
== END 2019-02-09 21:15 | disposition home or self-care (01) ==
LOC: M ED 15:15
DX: F10.239 Alcohol dependence with withdrawal, unspecified (principal); E11.40 Type 2 diabetes mellitus with diabetic neuropathy, unspecified; I10 Essential (primary) hypertension; N52.9 Male erectile dysfunction, unspecified; Z87.891 Personal history of nicotine dependence; Z79.899 Other long term (current) drug therapy; Z79.4 Long term (current) use of insulin
CPT/HCPCS: 36415; 80048; 80076; 80307; 84443; 85027; 99284; G0480

== ENCOUNTER → 2019-04-30 | Outpatient (REF) | payer OTHER ==
[~2019-04-30] MED LIST changes: +OMEP1CAP73; +OMEP1CAP73 PO; -OMEP20CA4; -OMEP20CA4 PO; +VICT18IN2
[2019-04-30 18:52] LABS: HEMATOCRIT 47.1 % (42.0-52.0); HEMOGLOBIN 16.2 g/dl (13.5-17.5); MEAN CORPUSCULAR HEMOGLOBIN 29.1 pg (27.0-33.0); MEAN CORPUSCULAR HGB CONC 34.4 g/dl (32.0-36.5); MEAN CORPUSCULAR VOLUME 84.7 fl (80.0-96.0); PLATELET COUNT, AUTOMATED 126 10^3/uL (150-450); RED BLOOD COUNT 5.56 10^6/uL (4.30-6.10); WHITE BLOOD COUNT 4.6 10^3/uL (4.0-10.0)
[2019-04-30 18:59] LABS: ALBUMIN 4.1 GM/DL (3.2-5.2); ALT/SGPT 46 U/L (12-78); BILIRUBIN,TOTAL 1.2 MG/DL (0.2-1.0); BLOOD UREA NITROGEN 15 MG/DL (7-18); CALCIUM LEVEL 9.7 MG/DL (8.5-10.1); CARBON DIOXIDE LEVEL 31 MEQ/L (21-32); CHLORIDE LEVEL 95 MEQ/L (98-107); CHOLESTEROL LEVEL 192 MG/DL (<200); CHOLESTEROL RISK RATIO 4.923 (<5); GLOMERULAR FILTRATION RATE > 60.0 (>56); GLUCOSE, FASTING 264 MG/DL (70-100); HDL CHOLESTEROL 39 MG/DL (>40); NON-HDL-C 153 MG/DL; POTASSIUM SERUM 3.4 MEQ/L (3.5-5.1); SODIUM LEVEL 136 MEQ/L (136-145); TOTAL PROTEIN 7.4 GM/DL (6.4-8.2); TRIGLYCERIDES LEVEL 454 MG/DL (<150)
[2019-04-30 19:21] LABS: MALB URINE SIEMENS 7.7 MG/L; MAU/CREAT RATIO 12.6 MCG/MG (0.0-30.0)
== END ==
LOC: M SFHCCLAY 16:37
PROVIDERS: ATTEND Internal Medicine Endocrinology, Diabetes & Metabolism
DX: E11.40 Type 2 diabetes mellitus with diabetic neuropathy, unspecified (principal)

== ENCOUNTER → 2019-07-16 | Outpatient (CLI) | payer OTHER ==
[~2019-07-16] MED LIST changes: +OMEP-172; +OMEP-172 PO; -OMEP1CAP73; -OMEP1CAP73 PO
== END ==
LOC: M SLEEP HO 11:31
PROVIDERS: ATTEND Nurse Practitioner Family
DX: R06.83 Snoring (principal)

== ENCOUNTER → 2022-05-27 | Outpatient (CLI) | payer BC, OTHER ==
[~2022-05-27] MED LIST changes: -OMEP-172; -OMEP-172 PO; +OMEP1CAP73; +OMEP1CAP73 PO
[2022-05-27 16:47] LABS: HEMATOCRIT 48.3 % (42.0-52.0); HEMOGLOBIN 16.7 g/dl (13.5-17.5); MEAN CORPUSCULAR HEMOGLOBIN 32.6 pg (27.0-33.0); MEAN CORPUSCULAR HGB CONC 34.6 g/dl (32.0-36.5); MEAN CORPUSCULAR VOLUME 94.2 fl (80.0-96.0); PLATELET COUNT, AUTOMATED 167 10^3/uL (150-450); RED BLOOD COUNT 5.13 10^6/uL (4.30-6.10); WHITE BLOOD COUNT 6.7 10^3/uL (4.0-10.0)
[2022-05-27 17:05] LABS: ALBUMIN 4.4 GM/DL (3.2-5.2); ALKALINE PHOSPHATASE 78 U/L (45-117); ALT/SGPT 81 U/L (12-78); AST/SGOT 49 U/L (7-37); BILIRUBIN,TOTAL 1.1 MG/DL (0.2-1.0); BLOOD UREA NITROGEN 11 MG/DL (7-18); CALCIUM LEVEL 10.2 MG/DL (8.8-10.2); CARBON DIOXIDE LEVEL 35 MEQ/L (21-32); CHLORIDE LEVEL 99 MEQ/L (98-107); CHOLESTEROL LEVEL 214 MG/DL (<200); CHOLESTEROL RISK RATIO 5.219 (<5); GLOMERULAR FILTRATION RATE > 60.0 (>49); GLUCOSE, FASTING 149 MG/DL (70-100); HDL CHOLESTEROL 41 MG/DL (>40); LDL CHOLESTEROL 110 MG/DL (<100); NON-HDL-C 173 MG/DL; POTASSIUM SERUM 3.7 MEQ/L (3.5-5.1); SODIUM LEVEL 137 MEQ/L (136-145); TOTAL PROTEIN 7.7 GM/DL (6.4-8.2); TRIGLYCERIDES LEVEL 316 MG/DL (<150)
[2022-05-27 17:31] LABS: CREATININE, URINE 45.2 MG/DL; MALB URINE SIEMENS < 5.0 MG/L
[2022-05-27 19:46] LABS: VITAMIN B12 LEVEL 1044 PG/ML (247-911)
== END ==
LOC: M WUC 14:34
PROVIDERS: ATTEND Internal Medicine Endocrinology, Diabetes & Metabolism
DX: E11.40 Type 2 diabetes mellitus with diabetic neuropathy, unspecified (principal)

== ENCOUNTER → 2022-09-13 | Outpatient (CLI) | payer OTHER ==
[2022-09-13 14:14] LABS: HEMATOCRIT 51.4 % (42.0-52.0); HEMOGLOBIN 17.9 g/dl (13.5-17.5); MEAN CORPUSCULAR HEMOGLOBIN 30.1 pg (27.0-33.0); MEAN CORPUSCULAR HGB CONC 34.8 g/dl (32.0-36.5); MEAN CORPUSCULAR VOLUME 86.5 fl (80.0-96.0); PLATELET COUNT, AUTOMATED 164 10^3/uL (150-450); RED BLOOD COUNT 5.94 10^6/uL (4.30-6.10); WHITE BLOOD COUNT 8.2 10^3/uL (4.0-10.0)
[2022-09-13 14:19] LABS: ALBUMIN 4.4 G/DL (3.2-5.2); ALKALINE PHOSPHATASE 101 U/L (46-116); ALT/SGPT 30 U/L (7.0-40); AST/SGOT 23 U/L (<34); BILIRUBIN,TOTAL 0.9 MG/DL (0.3-1.2); BLOOD UREA NITROGEN 12 MG/DL (9-23); CARBON DIOXIDE LEVEL 34 MMOL/L (20-31); CHLORIDE LEVEL 100 MMOL/L (98-107); CHOLESTEROL LEVEL 213 MG/DL (<200); CHOLESTEROL RISK RATIO 5.83 (<5); CREATININE FOR GFR 0.87 MG/DL (0.70-1.30); GLOMERULAR FILTRATION RATE > 60.0 (>49); GLUCOSE, FASTING 142 MG/DL (74-106); HDL CHOLESTEROL 36.5 MG/DL (>40); LDL CHOLESTEROL 141.1 MG/DL (<100); NON-HDL-C 177 MG/DL; POTASSIUM SERUM 3.6 MMOL/L (3.5-5.1); SODIUM LEVEL 141 MMOL/L (136-145); TOTAL PROTEIN 7.2 G/DL (5.7-8.2); TRIGLYCERIDES LEVEL 177 MG/DL (<150)
[2022-09-13 14:21] LABS: C REACTIVE PROTEIN QUANTITATIV < 0.40 MG/DL (<1.0)
[2022-09-13 14:22] LABS: FREE T4 1.24 NG/DL (0.89-1.76); THYROID STIMULATING HORMONE 2.914 uIU/ML (0.55-4.78)
[2022-09-13 14:24] LABS: VITAMIN B12 LEVEL 410 PG/ML (211-911)
[2022-09-13 14:32] LABS: HEMOGLOBIN A1c 6.3 % (4.0-6.0)
[2022-09-13 14:42] LABS: CREATININE, URINE 68.7 MG/DL; MALB URINE SIEMENS < 3.0 MG/DL; MAU/CREAT RATIO 4.3 MCG/MG (0.0-30.0)
== END ==
LOC: M PLAIMG 09:20
PROVIDERS: ATTEND Internal Medicine Hematology
DX: M12.811 Other specific arthropathies, not elsewhere classified, right shoulder (principal); E78.2 Mixed hyperlipidemia; Z12.5 Encounter for screening for malignant neoplasm of prostate; R93.6 Abnormal findings on diagnostic imaging of limbs

== ENCOUNTER 2022-10-23 10:18 | Emergency (ER) | payer OTHER ==
[~2022-10-23] VITALS: Ht 172.7 cm; Wt 96.9 kg
[2022-10-23] MEDS ORDERED: FLUO20CA22 PO (10:34)
[2022-10-23] MEDS ORDERED: BASA100I SC (10:34)
[2022-10-23] MEDS ORDERED: TRAZ-252 PO (10:34)
[2022-10-23] MEDS ORDERED: CHLO125TA PO (10:34)
[2022-10-23] MEDS ORDERED: OMEP-173 PO (10:34)
[2022-10-23] MEDS ORDERED: METF10004 PO (10:34)
[2022-10-23] MEDS ORDERED: RAMI1CAP26 PO (10:34)
[2022-10-23] MEDS ORDERED: DIVA250T67 PO (10:34)
[2022-10-23] MEDS ORDERED: OZEM2INJ PO (10:34)
[2022-10-23] MEDS ORDERED: ROSU20TA5 PO (10:34)
[2022-10-23] MEDS ORDERED: QUINAPRIL 20 MG TAB PO SCH (11:00)
[2022-10-23 11:14] LABS: HEMOGLOBIN 16.9 g/dl (13.5-17.5); MEAN CORPUSCULAR HEMOGLOBIN 29.7 pg (27.0-33.0); MEAN CORPUSCULAR HGB CONC 35.2 g/dl (32.0-36.5); MEAN CORPUSCULAR VOLUME 84.4 fl (80.0-96.0); PLATELET COUNT, AUTOMATED 124 10^3/uL (150-450); RED BLOOD COUNT 5.69 10^6/uL (4.30-6.10); WHITE BLOOD COUNT 7.7 10^3/uL (4.0-10.0)
[2022-10-23 11:44] LABS: ETHYL ALCOHOL (ETHANOL) < 0.003 % (0.000-0.010)
[2022-10-23 11:45] LABS: SALICYLATE LEVEL < 3.0 MG/DL (<30)
[2022-10-23] MEDS ORDERED: HOME MED LIST COMPLETE! XX SCH (11:45)
[2022-10-23 11:46] LABS: ACETAMINOPHEN LEVEL < 2.0 UG/ML (10.0-20.0)
[2022-10-23 11:49] LABS: ALBUMIN 4.3 G/DL (3.2-5.2); ALKALINE PHOSPHATASE 112 U/L (46-116); ALT/SGPT 29 U/L (7.0-40); AST/SGOT 24 U/L (<34); BILIRUBIN,DIRECT 0.5 MG/DL (<0.4); BILIRUBIN,TOTAL 1.8 MG/DL (0.3-1.2); BLOOD UREA NITROGEN 12 MG/DL (9-23); CALCIUM LEVEL 9.7 MG/DL (8.3-10.6); CARBON DIOXIDE LEVEL 27 MMOL/L (20-31); CHLORIDE LEVEL 101 MMOL/L (98-107); CREATININE FOR GFR 0.54 MG/DL (0.70-1.30); GLOMERULAR FILTRATION RATE > 60.0 (>49); GLUCOSE, FASTING 143 MG/DL (74-106); POTASSIUM SERUM 3.5 MMOL/L (3.5-5.1); SODIUM LEVEL 138 MMOL/L (136-145); THYROID STIMULATING HORMONE 1.689 uIU/ML (0.55-4.78)
[2022-10-23] MEDS: ramipriL 5 MG CAP PO SCH (11:55)
[2022-10-23 12:11] LABS: AMPHETAMINES LEVEL URINE NEGATIVE (NEGATIVE); BARBITURATES URINE NEGATIVE (NEGATIVE); BENZODIAZEPINES URINE NEGATIVE (NEGATIVE); COCAINE METABOLITE URINE NEGATIVE (NEGATIVE); METHADONE URINE NEGATIVE (NEGATIVE); OPIATES URINE NEGATIVE (NEGATIVE); PHENCYCLIDINE URINE NEGATIVE (NEGATIVE)
[2022-10-23 12:13] LABS: CANNABINOIDS URINE POSITIVE (NEGATIVE)
[2022-10-24 10:06] VITALS: BP 151/88
[2022-10-24] MEDS: ramipriL 5 MG CAP PO SCH (10:06)
[2022-10-25] MEDS ORDERED: metFORMIN (GLUCOPHAGE) 1000MG TABLET PO SCH (08:00)
[2022-10-25] MEDS ORDERED: FLUoxetine 20MG CAP PO SCH (09:00)
[2022-10-25] MEDS ORDERED: ROSUVASTATIN 10 MG TAB (CRESTOR) PO SCH (09:00)
[2022-10-25] MEDS ORDERED: ramipriL 5 MG CAP PO SCH (09:00)
[2022-10-25] MEDS ORDERED: OMEPRAZOLE 20MG CAP PO SCH (09:00)
[2022-10-25] MEDS: ramipriL 5 MG CAP PO SCH (09:00)
[2022-10-25] MEDS ORDERED: CHLORTHALIDONE 25 MG TAB PO ONE (09:00)
[2022-10-25] MEDS ORDERED: DIVALPROEX 250MG TAB PO SCH (09:00)
[2022-10-25 15:46] VITALS: BP 152/82
[2022-10-25] MEDS ORDERED: traZODone 50 MG TAB PO PRN (21:00)
[2022-10-26] MEDS ORDERED: CHLORTHALIDONE 25 MG TAB PO ONE (09:00)
== END 2022-10-25 16:02 | disposition home or self-care (01) ==
LOC: M ED 10:18
DX: F31.9 Bipolar disorder, unspecified (principal); E11.9 Type 2 diabetes mellitus without complications; I10 Essential (primary) hypertension; D86.9 Sarcoidosis, unspecified; F17.200 Nicotine dependence, unspecified, uncomplicated; F12.10 Cannabis abuse, uncomplicated; Z81.8 Family history of other mental and behavioral disorders; Z82.49 Family history of ischemic heart disease and other diseases of the circulatory system; Z91.51 Personal history of suicidal behavior; F19.10 Other psychoactive substance abuse, uncomplicated; R44.0 Auditory hallucinations; Z79.4 Long term (current) use of insulin; Z79.899 Other long term (current) drug therapy; Z88.0 Allergy status to penicillin

== ENCOUNTER 2022-11-03 13:26 | Inpatient (IN) | payer OTHER ==
[~2022-11-03] VITALS: Ht 172.7 cm; Wt 92.7 kg
[~2022-11-03 13:26] MED LIST changes: +BASA100I SC; +DIVA250T67 PO; +FLUO20CA22 PO; +OMEP-173 PO; +OZEM2INJ PO; +RAMI1CAP26 PO; +ROSU20TA5 PO; +TRAZ-252 PO
[2022-11-03 14:42] LABS: HEMATOCRIT 48.9 % (42.0-52.0); HEMOGLOBIN 17.1 g/dl (13.5-17.5); MEAN CORPUSCULAR HEMOGLOBIN 29.7 pg (27.0-33.0); MEAN CORPUSCULAR VOLUME 84.9 fl (80.0-96.0); PLATELET COUNT, AUTOMATED 167 10^3/uL (150-450); RED BLOOD COUNT 5.76 10^6/uL (4.30-6.10); WHITE BLOOD COUNT 8.7 10^3/uL (4.0-10.0)
[2022-11-03 15:02] LABS: ETHYL ALCOHOL (ETHANOL) 0.005 % (0.000-0.010)
[2022-11-03 15:03] LABS: SALICYLATE LEVEL < 3.0 MG/DL (<30)
[2022-11-03 15:04] LABS: ALBUMIN 4.6 G/DL (3.2-5.2); ALKALINE PHOSPHATASE 109 U/L (46-116); ALT/SGPT 29 U/L (7.0-40); AST/SGOT 35 U/L (<34); BILIRUBIN,TOTAL 2.7 MG/DL (0.3-1.2); BLOOD UREA NITROGEN 15 MG/DL (9-23); CALCIUM LEVEL 9.6 MG/DL (8.3-10.6); CARBON DIOXIDE LEVEL 29 MMOL/L (20-31); CHLORIDE LEVEL 98 MMOL/L (98-107); CREATININE FOR GFR 0.69 MG/DL (0.70-1.30); GLOMERULAR FILTRATION RATE > 60.0 (>49); GLUCOSE, FASTING 102 MG/DL (74-106); POTASSIUM SERUM 3.6 MMOL/L (3.5-5.1); SODIUM LEVEL 138 MMOL/L (136-145); TOTAL PROTEIN 7.5 G/DL (5.7-8.2)
[2022-11-03 15:07] LABS: THYROID STIMULATING HORMONE 1.308 uIU/ML (0.55-4.78)
[2022-11-03 15:07] LABS: AMPHETAMINES LEVEL URINE NEGATIVE (NEGATIVE); BARBITURATES URINE NEGATIVE (NEGATIVE); BENZODIAZEPINES URINE NEGATIVE (NEGATIVE); COCAINE METABOLITE URINE NEGATIVE (NEGATIVE); METHADONE URINE NEGATIVE (NEGATIVE); PHENCYCLIDINE URINE NEGATIVE (NEGATIVE)
[2022-11-03 15:08] LABS: CANNABINOIDS URINE POSITIVE (NEGATIVE); OPIATES URINE NEGATIVE (NEGATIVE)
[2022-11-03 15:08] LABS: ACETAMINOPHEN LEVEL 8.9 UG/ML (10.0-20.0)
[2022-11-03 15:39] LABS: VALPROIC ACID (DEPAKOTE) 15.8 UG/ML (50.0-100.0)
[2022-11-03] MEDS ORDERED: LORazepam 2 MG TAB PO STA (15:47)
[2022-11-03] MEDS ORDERED: DIVA250T67 PO (17:46)
[2022-11-03] MEDS ORDERED: HOME MED LIST COMPLETE! XX SCH ×2 (17:50→17:55)
[2022-11-03] MEDS ORDERED: PROBCAP14 PO (17:51)
[2022-11-03] MEDS ORDERED: OMEGCAP4 PO (17:51)
[2022-11-03] MEDS ORDERED: traZODone 50 MG TAB PO PRN (19:05)
[2022-11-03] MEDS ORDERED: OLANZapine ORAL DISINTEGRATING TAB 5MG PO PRN (19:05)
[2022-11-03] MEDS ORDERED: ACETAMINOPHEN TAB 650MG DOSE (2X325MG) PO PRN (19:05)
[2022-11-03] MEDS ORDERED: DIVALPROEX 250MG TAB PO SCH (21:00)
[2022-11-03] MEDS ORDERED: metFORMIN (GLUCOPHAGE) 1000MG TABLET PO SCH (21:00)
[2022-11-04 01:10] VITALS: BP 142/96
[2022-11-04] MEDS ORDERED: DIVALPROEX 250MG TAB PO SCH (09:00)
[2022-11-04] MEDS ORDERED: CHLORTHALIDONE 25 MG TAB PO SCH (09:00)
[2022-11-04] MEDS: NICOTINE 21MG/24HR 1 EA TRANSDERMAL TD SCH ×2 (09:00→12:04)
[2022-11-04] MEDS ORDERED: ramipriL 5 MG CAP PO SCH (09:00)
[2022-11-04] MEDS ORDERED: LEVEMIR (INSULIN DETEMIR) 1 UNITS/0.01ML SC SCH (09:00)
[2022-11-04] MEDS ORDERED: OMEPRAZOLE 20MG CAP PO SCH (09:00)
[2022-11-04] MEDS: metFORMIN (GLUCOPHAGE) 1000MG TABLET PO SCH ×2 (11:55→17:33)
[2022-11-04] MEDS: LACTOBACILLUS ACIDOPHILUS CAP (BACID) PO SCH (11:56)
[2022-11-04] MEDS: DIVALPROEX 250MG TAB PO SCH (11:56)
[2022-11-04] MEDS: OMEPRAZOLE 20MG CAP PO SCH (11:57)
[2022-11-04] MEDS: OMEGA-3 1000MG CAPSULE PO SCH (11:57)
[2022-11-04] MEDS: LEVEMIR (INSULIN DETEMIR) 1 UNITS/0.01ML SC SCH (12:03)
[2022-11-04] MEDS ORDERED: GLUCOSE 4GM CHEW TABLET PO PRN (12:35)
[2022-11-04] MEDS ORDERED: DEXTROSE 50% 50ML SYRINGE IV PRN (12:35)
[2022-11-04] MEDS ORDERED: GLUCAGON INJ 1MG VIAL SC PRN (12:35)
[2022-11-04] MEDS: CHLORTHALIDONE 25 MG TAB PO SCH (15:25)
[2022-11-04] MEDS: ramipriL 5 MG CAP PO SCH (15:26)
[2022-11-04 18:54] VITALS: BP 143/89
[2022-11-04] MEDS ORDERED: DIVALPROEX 500 MG TAB PO SCH (21:00)
[2022-11-05] MEDS: MAALOX 30 ML SUSP *UDC PO PRN (03:23)
[2022-11-05 06:01] VITALS: BP 148/83
[2022-11-05 07:39] LABS: CHOLESTEROL RISK RATIO 2.62 (<5); HDL CHOLESTEROL 38.5 MG/DL (>40); LDL CHOLESTEROL 38.3 MG/DL (<100); NON-HDL-C 62.5 MG/DL
[2022-11-05] MEDS: metFORMIN (GLUCOPHAGE) 1000MG TABLET PO SCH ×2 (08:20→17:11)
[2022-11-05] MEDS: LACTOBACILLUS ACIDOPHILUS CAP (BACID) PO SCH (08:20)
[2022-11-05] MEDS: OMEPRAZOLE 20MG CAP PO SCH (08:20)
[2022-11-05] MEDS: LEVEMIR (INSULIN DETEMIR) 1 UNITS/0.01ML SC SCH (08:20)
[2022-11-05] MEDS: OMEGA-3 1000MG CAPSULE PO SCH (08:20)
[2022-11-05] MEDS: NICOTINE 21MG/24HR 1 EA TRANSDERMAL TD SCH (08:20)
[2022-11-05] MEDS: CHLORTHALIDONE 25 MG TAB PO SCH (08:21)
[2022-11-05] MEDS: DIVALPROEX 250MG TAB PO SCH ×2 (08:22→21:20)
[2022-11-05] MEDS: ramipriL 5 MG CAP PO SCH (08:42)
[2022-11-05 16:14] VITALS: BP 134/81
[2022-11-06 07:39] VITALS: BP 152/84
[2022-11-06] MEDS: LEVEMIR (INSULIN DETEMIR) 1 UNITS/0.01ML SC SCH (08:06)
[2022-11-06] MEDS: OMEPRAZOLE 20MG CAP PO SCH (08:07)
[2022-11-06] MEDS: NICOTINE 21MG/24HR 1 EA TRANSDERMAL TD SCH (08:07)
[2022-11-06] MEDS: metFORMIN (GLUCOPHAGE) 1000MG TABLET PO SCH ×2 (08:08→17:22)
[2022-11-06] MEDS: DIVALPROEX 250MG TAB PO SCH ×2 (08:08→21:40)
[2022-11-06] MEDS: CHLORTHALIDONE 25 MG TAB PO SCH (08:08)
[2022-11-06] MEDS: ramipriL 5 MG CAP PO SCH (08:08)
[2022-11-06] MEDS: LACTOBACILLUS ACIDOPHILUS CAP (BACID) PO SCH (08:08)
[2022-11-06] MEDS: OMEGA-3 1000MG CAPSULE PO SCH (08:08)
[2022-11-06 16:30] VITALS: BP 152/76
[2022-11-06] MEDS: MOM 30ML SUSPENSION UDC PO PRN (21:40)
[2022-11-07 06:51] VITALS: BP 160/90
[2022-11-07] MEDS: ramipriL 5 MG CAP PO SCH (08:40)
[2022-11-07] MEDS: LACTOBACILLUS ACIDOPHILUS CAP (BACID) PO SCH (08:40)
[2022-11-07] MEDS: OMEGA-3 1000MG CAPSULE PO SCH (08:40)
[2022-11-07] MEDS: DIVALPROEX 250MG TAB PO SCH (08:40)
[2022-11-07] MEDS: CHLORTHALIDONE 25 MG TAB PO SCH (08:40)
[2022-11-07] MEDS: metFORMIN (GLUCOPHAGE) 1000MG TABLET PO SCH ×2 (08:40→17:36)
[2022-11-07] MEDS: OMEPRAZOLE 20MG CAP PO SCH (08:41)
[2022-11-07] MEDS: NICOTINE 21MG/24HR 1 EA TRANSDERMAL TD SCH (08:41)
[2022-11-07] MEDS: LEVEMIR (INSULIN DETEMIR) 1 UNITS/0.01ML SC SCH (08:42)
[2022-11-07 18:39] VITALS: BP 172/80
[2022-11-07] MEDS ORDERED: ramipriL 5 MG CAP PO ONE (19:00)
[2022-11-07] MEDS: DIVALPROEX 500MG *ER* TAB PO SCH (20:27)
[2022-11-07] MEDS ORDERED: amLODIPine 5 MG TAB PO ONE (23:05)
[2022-11-08 05:46] VITALS: BP 160/90
[2022-11-08] MEDS: metFORMIN (GLUCOPHAGE) 1000MG TABLET PO SCH ×2 (08:55→18:14)
[2022-11-08] MEDS: NICOTINE 21MG/24HR 1 EA TRANSDERMAL TD SCH (09:00)
[2022-11-08 09:38] VITALS: BP 186/96
[2022-11-08] MEDS: DIVALPROEX 250MG *ER* TAB PO SCH (09:42)
[2022-11-08] MEDS: LACTOBACILLUS ACIDOPHILUS CAP (BACID) PO SCH (09:42)
[2022-11-08] MEDS: OMEGA-3 1000MG CAPSULE PO SCH (09:42)
[2022-11-08] MEDS: OMEPRAZOLE 20MG CAP PO SCH (09:42)
[2022-11-08] MEDS: CHLORTHALIDONE 25 MG TAB PO SCH (09:42)
[2022-11-08] MEDS: ramipriL 5 MG CAP PO SCH (09:43)
[2022-11-08] MEDS: LEVEMIR (INSULIN DETEMIR) 1 UNITS/0.01ML SC SCH (09:47)
[2022-11-08 11:51] VITALS: BP 150/94
[2022-11-08] MEDS ORDERED: **hydrALAZINE HCL** 25 MG TAB PO PRN (18:40)
[2022-11-08 18:42] VITALS: BP_SYST 126; BP_SYST 180; BP_DIAS 66; BP_DIAS 90
[2022-11-08] MEDS: MOM 30ML SUSPENSION UDC PO PRN (18:42)
[2022-11-08] MEDS: amLODIPine 5 MG TAB PO SCH (19:12)
[2022-11-08 20:20] VITALS: BP 156/90
[2022-11-08] MEDS: DIVALPROEX 500MG *ER* TAB PO SCH (21:18)
[2022-11-08 22:45] VITALS: BP 154/92
[2022-11-09 05:48] VITALS: BP 142/70
[2022-11-09] MEDS: NICOTINE 21MG/24HR 1 EA TRANSDERMAL TD SCH (08:31)
[2022-11-09] MEDS: CHLORTHALIDONE 25 MG TAB PO SCH (08:37)
[2022-11-09] MEDS: DIVALPROEX 250MG *ER* TAB PO SCH (08:38)
[2022-11-09] MEDS: OMEPRAZOLE 20MG CAP PO SCH (08:38)
[2022-11-09] MEDS: LACTOBACILLUS ACIDOPHILUS CAP (BACID) PO SCH (08:38)
[2022-11-09] MEDS: metFORMIN (GLUCOPHAGE) 1000MG TABLET PO SCH ×2 (08:38→18:08)
[2022-11-09] MEDS: amLODIPine 5 MG TAB PO SCH (08:38)
[2022-11-09] MEDS: ramipriL 5 MG CAP PO SCH (08:39)
[2022-11-09] MEDS: OMEGA-3 1000MG CAPSULE PO SCH (08:39)
[2022-11-09] MEDS: LEVEMIR (INSULIN DETEMIR) 1 UNITS/0.01ML SC SCH (08:41)
[2022-11-09] MEDS ORDERED: ARIPiprazole MONOHYDRATE 400 MG INJ (ABILIFY)(FREE PSY INPT ONLY) IM ONE (12:25)
[2022-11-09 18:53] VITALS: BP 132/90
[2022-11-09] MEDS: MAALOX 30 ML SUSP *UDC PO PRN (19:30)
[2022-11-09] MEDS: DIVALPROEX 500MG *ER* TAB PO SCH (20:42)
[2022-11-10 06:36] VITALS: BP 141/81
[2022-11-10] MEDS: NICOTINE 21MG/24HR 1 EA TRANSDERMAL TD SCH (09:00)
[2022-11-10] MEDS: metFORMIN (GLUCOPHAGE) 1000MG TABLET PO SCH (09:14)
[2022-11-10] MEDS: OMEGA-3 1000MG CAPSULE PO SCH (09:14)
[2022-11-10] MEDS: LACTOBACILLUS ACIDOPHILUS CAP (BACID) PO SCH (09:14)
[2022-11-10] MEDS: OMEPRAZOLE 20MG CAP PO SCH (09:18)
[2022-11-10] MEDS: ramipriL 5 MG CAP PO SCH (09:18)
[2022-11-10 09:19] VITALS: BP 170/90
[2022-11-10] MEDS: amLODIPine 5 MG TAB PO SCH (09:19)
[2022-11-10] MEDS: CHLORTHALIDONE 25 MG TAB PO SCH (09:19)
[2022-11-10] MEDS: LEVEMIR (INSULIN DETEMIR) 1 UNITS/0.01ML SC SCH (09:21)
[2022-11-10 10:24] VITALS: BP 170/90
[2022-11-10 10:36] VITALS: BP 132/88
[2022-11-10] MEDS ORDERED: ALTA1CAP4 PO (10:41)
[2022-11-10] MEDS ORDERED: DEPA500T2 PO (10:41)
[2022-11-10] MEDS ORDERED: ARIP1TAB6 PO (10:41)
[2022-11-10] MEDS ORDERED: AMLO1TAB24 PO (10:41)
[2022-11-10] MEDS ORDERED: TRAZ-252 PO (10:41)
[2022-11-10] MEDS ORDERED: NICO21PAT TD (10:41)
[2022-11-10] MEDS ORDERED: ABIL1INJ2 IM (10:42)
== END 2022-11-10 13:10 | disposition home or self-care (01) | DRG 753 ==
LOC: M ED 13:26 → M ED INP 19:02 → M PSY 11-04 01:03
PROVIDERS: ADMIT Student in an Organized Health Care Education/Training Program; ATTEND Student in an Organized Health Care Education/Training Program
DX: F31.0 Bipolar disorder, current episode hypomanic (principal); E11.9 Type 2 diabetes mellitus without complications; I10 Essential (primary) hypertension; Z88.8 Allergy status to other drugs, medicaments and biological substances; Z79.899 Other long term (current) drug therapy; Z88.0 Allergy status to penicillin; K21.9 Gastro-esophageal reflux disease without esophagitis; E78.5 Hyperlipidemia, unspecified; F17.290 Nicotine dependence, other tobacco product, uncomplicated; F12.90 Cannabis use, unspecified, uncomplicated; Z79.4 Long term (current) use of insulin

== ENCOUNTER → 2022-12-09 | Outpatient (CLI) | payer OTHER ==
[~2022-12-09] MED LIST changes: +ABIL1INJ2 IM; +ALTA1CAP4 PO; +AMLO1TAB24 PO; +ARIP1TAB6 PO; +DEPA500T2 PO; +NICO21PAT TD; +OMEGCAP4 PO; +PROBCAP14 PO
== END ==
LOC: M PLALAB 14:56
PROVIDERS: ATTEND Psychiatry & Neurology Psychiatry
DX: Z79.899 Other long term (current) drug therapy (principal)

== ENCOUNTER → 2023-03-30 | Outpatient (CLI) | payer OTHER ==
[~2023-03-30] MED LIST changes: -ROSU20TA5 PO; +ROSU20TA61 PO
[2023-03-30 18:42] LABS: CREATININE, URINE 103.5 MG/DL; MAU/CREAT RATIO 4.8 MCG/MG (0.0-30.0)
[2023-03-30 19:10] LABS: HEMOGLOBIN 16.2 g/dl (13.5-17.5); MEAN CORPUSCULAR HEMOGLOBIN 30.1 pg (27.0-33.0); MEAN CORPUSCULAR HGB CONC 34.5 g/dl (32.0-36.5); MEAN CORPUSCULAR VOLUME 87.4 fl (80.0-96.0); PLATELET COUNT, AUTOMATED 131 10^3/uL (150-450); RED BLOOD COUNT 5.38 10^6/uL (4.30-6.10); WHITE BLOOD COUNT 8.3 10^3/uL (4.0-10.0)
[2023-03-30 19:15] LABS: C REACTIVE PROTEIN QUANTITATIV < 0.40 MG/DL (<1.0)
[2023-03-30 19:16] LABS: ALBUMIN 4.2 G/DL (3.2-5.2); ALKALINE PHOSPHATASE 91 U/L (46-116); ALT/SGPT 22 U/L (7.0-40); AST/SGOT 22 U/L (<34); BILIRUBIN,TOTAL 1.2 MG/DL (0.3-1.2); BLOOD UREA NITROGEN 11 MG/DL (9-23); CARBON DIOXIDE LEVEL 30 MMOL/L (20-31); CHLORIDE LEVEL 103 MMOL/L (98-107); CHOLESTEROL LEVEL 123 MG/DL (<200); CHOLESTEROL RISK RATIO 3.41 (<5); CREATININE FOR GFR 0.65 MG/DL (0.70-1.30); GLOMERULAR FILTRATION RATE > 60.0 (>49); GLUCOSE, FASTING 123 MG/DL (74-106); LDL CHOLESTEROL 56.4 MG/DL (<100); POTASSIUM SERUM 3.4 MMOL/L (3.5-5.1); SODIUM LEVEL 140 MMOL/L (136-145); TOTAL 25(OH) VITAMIN D 15.2 NG/ML (20.0-100.0); TOTAL PROTEIN 6.9 G/DL (5.7-8.2); TRIGLYCERIDES LEVEL 153 MG/DL (<150); VITAMIN B12 LEVEL 505 PG/ML (211-911)
[2023-03-30 19:17] LABS: THYROID STIMULATING HORMONE 2.578 uIU/ML (0.55-4.78)
[2023-03-30 19:18] LABS: FREE T4 0.96 NG/DL (0.89-1.76)
[2023-03-30 19:34] LABS: HEMOGLOBIN A1c 6.2 % (4.0-6.0)
== END ==
LOC: M PLALAB 15:17
PROVIDERS: ATTEND Internal Medicine Hematology
DX: E11.9 Type 2 diabetes mellitus without complications (principal)

== ENCOUNTER → 2023-08-22 | Outpatient (CLI) | payer OTHER ==
[2023-08-22 15:06] LABS: BASO % 0.5 % (0.0-1.0); EOS # 0.4 10^3/uL (0.0-0.5); EOS % 6.4 % (0.0-3.0); HEMATOCRIT 46.1 % (42.0-52.0); HEMOGLOBIN 15.7 g/dl (13.5-17.5); LYMPH # 1.3 10^3/uL (1.5-5.0); LYMPH % 22.7 % (24.0-44.0); MEAN CORPUSCULAR HEMOGLOBIN 30.1 pg (27.0-33.0); MEAN CORPUSCULAR HGB CONC 34.1 g/dl (32.0-36.5); MEAN CORPUSCULAR VOLUME 88.3 fl (80.0-96.0); MONO # 0.9 10^3/uL (0.0-0.8); MONO % 14.9 % (2.0-8.0); NEUTROPHILS # 3.2 10^3/uL (1.5-8.5); PLATELET COUNT, AUTOMATED 118 10^3/uL (150-450); RED BLOOD COUNT 5.22 10^6/uL (4.30-6.10); WHITE BLOOD COUNT 5.8 10^3/uL (4.0-10.0)
[2023-08-22 15:34] LABS: VALPROIC ACID (DEPAKOTE) 16.7 UG/ML (50.0-100.0)
[2023-08-22 15:38] LABS: ALBUMIN 3.9 G/DL (3.2-5.2); ALKALINE PHOSPHATASE 67 U/L (46-116); ALT/SGPT 33 U/L (7.0-40); AST/SGOT 32 U/L (<34); BILIRUBIN,TOTAL 0.8 MG/DL (0.3-1.2); BLOOD UREA NITROGEN 13 MG/DL (9-23); CALCIUM LEVEL 9.1 MG/DL (8.3-10.6); CARBON DIOXIDE LEVEL 34 MMOL/L (20-31); CHLORIDE LEVEL 102 MMOL/L (98-107); CREATININE FOR GFR 0.65 MG/DL (0.70-1.30); GLOMERULAR FILTRATION RATE > 60.0 (>49); GLUCOSE, FASTING 159 MG/DL (74-106); POTASSIUM SERUM 3.5 MMOL/L (3.5-5.1); SODIUM LEVEL 140 MMOL/L (136-145); TOTAL PROTEIN 6.6 G/DL (5.7-8.2)
== END ==
LOC: M PLALAB 10:27
PROVIDERS: ATTEND Psychiatry & Neurology Psychiatry
DX: Z79.899 Other long term (current) drug therapy (principal)

== ENCOUNTER 2023-08-25 04:12 | Emergency (ER) | payer OTHER ==
[~2023-08-25] VITALS: Ht 172.7 cm; Wt 104.7 kg
[2023-08-25 04:13] VITALS: BP 125/69; TEMP 97.3; O2SAT 96
[2023-08-25 04:50] LABS: BASO % 0.6 % (0.0-1.0); EOS # 0.3 10^3/uL (0.0-0.5); EOS % 6.3 % (0.0-3.0); HEMATOCRIT 43.6 % (42.0-52.0); LYMPH # 1.2 10^3/uL (1.5-5.0); LYMPH % 25.9 % (24.0-44.0); MEAN CORPUSCULAR HEMOGLOBIN 30.6 pg (27.0-33.0); MEAN CORPUSCULAR HGB CONC 34.4 g/dl (32.0-36.5); MONO # 0.6 10^3/uL (0.0-0.8); MONO % 13.5 % (2.0-8.0); NEUTROPHILS # 2.5 10^3/uL (1.5-8.5); NEUTROPHILS % 53.3 % (36.0-66.0); PLATELET COUNT, AUTOMATED 110 10^3/uL (150-450); WHITE BLOOD COUNT 4.8 10^3/uL (4.0-10.0)
[2023-08-25 05:11] LABS: ALBUMIN 3.8 G/DL (3.2-5.2); ALKALINE PHOSPHATASE 78 U/L (46-116); ALT/SGPT 33 U/L (7.0-40); AST/SGOT 27 U/L (<34); BILIRUBIN,DIRECT 0.3 MG/DL (<0.4); BLOOD UREA NITROGEN 15 MG/DL (9-23); CALCIUM LEVEL 9.3 MG/DL (8.3-10.6); CARBON DIOXIDE LEVEL 32 MMOL/L (20-31); CHLORIDE LEVEL 103 MMOL/L (98-107); CK-MB VALUE MASS 1.2 NG/ML (<3.6); CPK CREATINE PHOSPHOKINASE 94 U/L (46-171); CREATININE FOR GFR 0.72 MG/DL (0.70-1.30); GLOMERULAR FILTRATION RATE > 60.0 (>49); GLUCOSE, FASTING 237 MG/DL (74-106); MB/CK RELATIVE INDEX 1.27 (< OR =4); POTASSIUM SERUM 3.9 MMOL/L (3.5-5.1); SODIUM LEVEL 141 MMOL/L (136-145); TOTAL PROTEIN 6.8 G/DL (5.7-8.2)
[2023-08-25] MEDS ORDERED: LASI20TA3 PO (18:07)
== END 2023-08-25 05:36 | disposition left against medical advice (07) ==
LOC: M ED 04:12
DX: Z53.21 Procedure and treatment not carried out due to patient leaving prior to being seen by health care provider (principal)

== ENCOUNTER 2023-08-25 14:55 | Emergency (ER) | payer OTHER ==
[~2023-08-25] VITALS: Ht 172.7 cm; Wt 102.3 kg
[2023-08-25 15:40] LABS: VENOUS BASE EXCESS 3.4 (-2.0-2.0); VENOUS HCO3 29.6 MMOL/L (23.0-27.0); VENOUS O2 SATURATION 87.9 % (60.0-80.0); VENOUS PARTIAL PRESSURE CO2 50.5 mmHg (38.0-50.0); VENOUS PARTIAL PRESSURE O2 55.4 mmHg (30.0-50.0); VENOUS PH 7.386 UNITS (7.330-7.430); VENOUS STANDARD HCO3 27.2 MMOL/L; VENOUS TOTAL CO2 31.2 MMOL/L (24.0-28.0)
[2023-08-25 15:46] LABS: BASO % 0.6 % (0.0-1.0); EOS # 0.3 10^3/uL (0.0-0.5); EOS % 5.1 % (0.0-3.0); HEMOGLOBIN 15.8 g/dl (13.5-17.5); LYMPH # 1.1 10^3/uL (1.5-5.0); LYMPH % 22.9 % (24.0-44.0); MEAN CORPUSCULAR HEMOGLOBIN 30.4 pg (27.0-33.0); MEAN CORPUSCULAR HGB CONC 34.3 g/dl (32.0-36.5); MEAN CORPUSCULAR VOLUME 88.6 fl (80.0-96.0); MONO # 0.6 10^3/uL (0.0-0.8); MONO % 11.7 % (2.0-8.0); NEUTROPHILS # 2.9 10^3/uL (1.5-8.5); NEUTROPHILS % 59.3 % (36.0-66.0); PLATELET COUNT, AUTOMATED 111 10^3/uL (150-450); RED BLOOD COUNT 5.19 10^6/uL (4.30-6.10); WHITE BLOOD COUNT 4.9 10^3/uL (4.0-10.0)
[2023-08-25 16:40] LABS: BLOOD UREA NITROGEN 15 MG/DL (9-23); CHLORIDE LEVEL 101 MMOL/L (98-107); CREATININE FOR GFR 0.67 MG/DL (0.70-1.30); GLOMERULAR FILTRATION RATE > 60.0 (>49); GLUCOSE, FASTING 337 MG/DL (74-106); POTASSIUM SERUM 3.8 MMOL/L (3.5-5.1); SODIUM LEVEL 139 MMOL/L (136-145)
[2023-08-25 16:41] LABS: ALBUMIN 4.1 G/DL (3.2-5.2); ALKALINE PHOSPHATASE 80 U/L (46-116); ALT/SGPT 35 U/L (7.0-40); AST/SGOT 32 U/L (<34); BILIRUBIN,DIRECT 0.3 MG/DL (<0.4); C REACTIVE PROTEIN QUANTITATIV < 0.40 MG/DL (<1.0); CALCIUM LEVEL 9.4 MG/DL (8.3-10.6); CARBON DIOXIDE LEVEL 32 MMOL/L (20-31); CPK CREATINE PHOSPHOKINASE 89 U/L (46-171); MB/CK RELATIVE INDEX 2.24 (< OR =4); THYROID STIMULATING HORMONE 1.132 uIU/ML (0.55-4.78); THYROXINE (T4) 6.5 UG/DL (4.5-10.9); TOTAL PROTEIN 7.4 G/DL (5.7-8.2)
[2023-08-25] MEDS ORDERED: FUROSEMIDE 20MG/2ML VIAL IV ONE (17:45)
[2023-08-25] MEDS ORDERED: LASI20TA3 PO (18:07)
[2023-08-25 18:35] VITALS: BP 129/79; TEMP 98.3; O2SAT 96
[2023-08-25 18:48] LABS: CK-MB VALUE MASS < 1.0 NG/ML (<3.6)
[2023-08-25 18:50] LABS: CPK CREATINE PHOSPHOKINASE 86 U/L (46-171); MB/CK RELATIVE INDEX 1.16 (< OR =4)
== END 2023-08-25 18:36 | disposition home or self-care (01) ==
LOC: EDBD 14:55 → M ED 14:55
DX: I50.811 Acute right heart failure (principal); I50.9 Heart failure, unspecified; E11.65 Type 2 diabetes mellitus with hyperglycemia; I44.4 Left anterior fascicular block; I10 Essential (primary) hypertension; G47.33 Obstructive sleep apnea (adult) (pediatric); F12.10 Cannabis abuse, uncomplicated; Z79.83 Long term (current) use of bisphosphonates; Z79.899 Other long term (current) drug therapy; Z88.1 Allergy status to other antibiotic agents; Z88.8 Allergy status to other drugs, medicaments and biological substances
CPT/HCPCS: 71045; 80048; 80076; 82550; 82553; 82803; 83605; 83880; 84436; 84443; 85025; 85379; 86140; 87486; 87581; 87633; 87798; 93005; 93041; 94760; 96374; 99285; J1940

== ENCOUNTER → 2023-09-14 | Outpatient (CLI) | payer OTHER ==
[~2023-09-14] MED LIST changes: +LASI20TA3 PO
== END ==
LOC: M PLALAB 09:30
PROVIDERS: ATTEND Psychiatry & Neurology Psychiatry
DX: Z51.81 Encounter for therapeutic drug level monitoring (principal); Z79.899 Other long term (current) drug therapy

== ENCOUNTER → 2023-09-14 | Outpatient (CLI) | payer OTHER | LOC: M PLALAB 09:32 | PROVIDERS: ATTEND Physician Assistant | DX: Z12.5 Encounter for screening for malignant neoplasm of prostate (principal) ==

== ENCOUNTER → 2023-10-05 | Outpatient (CLI) | payer OTHER ==
[2023-10-05 13:54] LABS: HEMATOCRIT 44.9 % (42.0-52.0); HEMOGLOBIN 15.7 g/dl (13.5-17.5); MEAN CORPUSCULAR HEMOGLOBIN 30.6 pg (27.0-33.0); MEAN CORPUSCULAR VOLUME 87.5 fl (80.0-96.0); PLATELET COUNT, AUTOMATED 142 10^3/uL (150-450); RED BLOOD COUNT 5.13 10^6/uL (4.30-6.10); WHITE BLOOD COUNT 5.9 10^3/uL (4.0-10.0)
[2023-10-05 14:15] LABS: HEMOGLOBIN A1c 6.8 % (4.0-6.0)
[2023-10-05 14:23] LABS: MALB URINE SIEMENS < 3.0 MG/L; MAU/CREAT RATIO 2.9 MCG/MG (0.0-30.0)
[2023-10-05 14:27] LABS: ALKALINE PHOSPHATASE 83 U/L (46-116); ALT/SGPT 49 U/L (7.0-40); AST/SGOT 39 U/L (<34); BILIRUBIN,TOTAL 1.1 MG/DL (0.3-1.2); BLOOD UREA NITROGEN 16 MG/DL (9-23); CALCIUM LEVEL 8.6 MG/DL (8.3-10.6); CARBON DIOXIDE LEVEL 31 MMOL/L (20-31); CHLORIDE LEVEL 98 MMOL/L (98-107); CHOLESTEROL LEVEL 170 MG/DL (<200); CHOLESTEROL RISK RATIO 4.15 (<5); CREATININE FOR GFR 0.75 MG/DL (0.70-1.30); FREE T4 1.21 NG/DL (0.89-1.76); GLOMERULAR FILTRATION RATE > 60.0 (>49); GLUCOSE, FASTING 166 MG/DL (74-106); HDL CHOLESTEROL 40.9 MG/DL (>40); LDL CHOLESTEROL 100.3 MG/DL (<100); NON-HDL-C 129.1 MG/DL; POTASSIUM SERUM 3.5 MMOL/L (3.5-5.1); SODIUM LEVEL 136 MMOL/L (136-145); TOTAL PROTEIN 6.8 G/DL (5.7-8.2); TRIGLYCERIDES LEVEL 144 MG/DL (<150)
[2023-10-05 14:28] LABS: THYROID STIMULATING HORMONE 1.705 uIU/ML (0.55-4.78); VITAMIN B12 LEVEL 526 PG/ML (211-911)
[2023-10-05 14:29] LABS: TOTAL 25(OH) VITAMIN D 21.3 NG/ML (20.0-100.0)
== END ==
LOC: M PLALAB 11:28
PROVIDERS: ATTEND Internal Medicine Hematology
DX: E11.9 Type 2 diabetes mellitus without complications (principal); E78.2 Mixed hyperlipidemia; I10 Essential (primary) hypertension; R74.8 Abnormal levels of other serum enzymes; F17.210 Nicotine dependence, cigarettes, uncomplicated; R07.0 Pain in throat; R49.9 Unspecified voice and resonance disorder; N52.9 Male erectile dysfunction, unspecified

== ENCOUNTER → 2024-01-05 | Outpatient (CLI) | payer OTHER ==
[~2024-01-05] MED LIST changes: +FLUO-365 PO; -FLUO20CA22 PO; +RAMI10CA64 PO; -RAMI1CAP26 PO
== END ==
LOC: M PLALAB 13:35
PROVIDERS: ATTEND Physician Assistant
DX: Z12.5 Encounter for screening for malignant neoplasm of prostate (principal)

== ENCOUNTER → 2024-01-09 | Outpatient (CLI) | payer OTHER ==
[2024-01-09 18:05] LABS: HEMATOCRIT 48.3 % (42.0-52.0); MEAN CORPUSCULAR HGB CONC 35.2 g/dl (32.0-36.5); MEAN CORPUSCULAR VOLUME 85.3 fl (80.0-96.0); PLATELET COUNT, AUTOMATED 154 10^3/uL (150-450); RED BLOOD COUNT 5.66 10^6/uL (4.30-6.10)
[2024-01-09 18:31] LABS: CREATININE, URINE 87.9 MG/DL
[2024-01-09 18:36] LABS: MAU/CREAT RATIO 5.6 MCG/MG (0.0-30.0)
[2024-01-09 18:37] LABS: ALBUMIN 4.2 G/DL (3.2-5.2); ALKALINE PHOSPHATASE 87 U/L (46-116); ALT/SGPT 80 U/L (7.0-40); AST/SGOT 46 U/L (<34); BILIRUBIN,TOTAL 1.6 MG/DL (0.3-1.2); BLOOD UREA NITROGEN 22 MG/DL (9-23); CALCIUM LEVEL 9.5 MG/DL (8.3-10.6); CARBON DIOXIDE LEVEL 28 MMOL/L (20-31); CHLORIDE LEVEL 100 MMOL/L (98-107); CHOLESTEROL LEVEL 168 MG/DL (<200); CHOLESTEROL RISK RATIO 4.91 (<5); CREATININE FOR GFR 0.78 MG/DL (0.70-1.30); GLOMERULAR FILTRATION RATE > 60.0 (>49); GLUCOSE, FASTING 137 MG/DL (74-106); HDL CHOLESTEROL 34.2 MG/DL (>40); NON-HDL-C 133.8 MG/DL; POTASSIUM SERUM 3.5 MMOL/L (3.5-5.1); SODIUM LEVEL 136 MMOL/L (136-145); TOTAL PROTEIN 7.2 G/DL (5.7-8.2); TRIGLYCERIDES LEVEL 284 MG/DL (<150)
== END ==
LOC: M PLALAB 14:35
PROVIDERS: ATTEND Internal Medicine Endocrinology, Diabetes & Metabolism
DX: E11.40 Type 2 diabetes mellitus with diabetic neuropathy, unspecified (principal)

== ENCOUNTER → 2024-05-14 | Outpatient (CLI) | payer OTHER ==
[~2024-05-14] MED LIST changes: -ROSU20TA61 PO; +ROSU20TA86 PO
[2024-05-14 15:55] LABS: VALPROIC ACID (DEPAKOTE) 50.2 UG/ML (50.0-100.0)
[2024-05-14 15:57] LABS: BLOOD UREA NITROGEN 12 MG/DL (9-23); CALCIUM LEVEL 9.9 MG/DL (8.3-10.6); CARBON DIOXIDE LEVEL 31 MMOL/L (20-31); CHLORIDE LEVEL 102 MMOL/L (98-107); GLOMERULAR FILTRATION RATE > 60.0 (>49); GLUCOSE, FASTING 118 MG/DL (74-106); POTASSIUM SERUM 3.7 MMOL/L (3.5-5.1); SODIUM LEVEL 139 MMOL/L (136-145)
== END ==
LOC: M PLALAB 12:17
PROVIDERS: ATTEND Psychiatry & Neurology Psychiatry
DX: Z51.81 Encounter for therapeutic drug level monitoring (principal); Z79.899 Other long term (current) drug therapy

== ENCOUNTER → 2024-05-14 | Outpatient (CLI) | payer OTHER ==
[2024-05-14 15:29] LABS: BASO % 0.7 % (0.0-1.0); EOS # 0.3 10^3/uL (0.0-0.5); EOS % 4.6 % (0.0-3.0); HEMATOCRIT 49.6 % (42.0-52.0); HEMOGLOBIN 17.1 g/dl (13.5-17.5); LYMPH # 1.5 10^3/uL (1.5-5.0); LYMPH % 25.6 % (24.0-44.0); MEAN CORPUSCULAR HEMOGLOBIN 30.5 pg (27.0-33.0); MEAN CORPUSCULAR HGB CONC 34.5 g/dl (32.0-36.5); MEAN CORPUSCULAR VOLUME 88.6 fl (80.0-96.0); MONO # 0.9 10^3/uL (0.0-0.8); MONO % 14.8 % (2.0-8.0); NEUTROPHILS # 3.2 10^3/uL (1.5-8.5); PLATELET COUNT, AUTOMATED 154 10^3/uL (150-450); WHITE BLOOD COUNT 5.9 10^3/uL (4.0-10.0)
[2024-05-14 15:54] LABS: CREATININE, URINE 101.6 MG/DL
[2024-05-14 15:56] LABS: ALBUMIN 3.8 G/DL (3.2-5.2); ALKALINE PHOSPHATASE 71 U/L (46-116); ALT/SGPT 121 U/L (7.0-40); AST/SGOT 92 U/L (<34); BILIRUBIN,TOTAL 0.8 MG/DL (0.3-1.2); BLOOD UREA NITROGEN 12 MG/DL (9-23); CALCIUM LEVEL 9.5 MG/DL (8.3-10.6); CARBON DIOXIDE LEVEL 32 MMOL/L (20-31); CHLORIDE LEVEL 102 MMOL/L (98-107); CHOLESTEROL LEVEL 205 MG/DL (<200); CHOLESTEROL RISK RATIO 5.21 (<5); CREATININE FOR GFR 0.62 MG/DL (0.70-1.30); GLOMERULAR FILTRATION RATE > 60.0 (>49); GLUCOSE, FASTING 118 MG/DL (74-106); HDL CHOLESTEROL 39.3 MG/DL (>40); LDL CHOLESTEROL 107.5 MG/DL (<100); MALB URINE SIEMENS < 3.0 MG/L; MAU/CREAT RATIO 2.9 MCG/MG (0.0-30.0); NON-HDL-C 165.7 MG/DL; POTASSIUM SERUM 3.7 MMOL/L (3.5-5.1); SODIUM LEVEL 139 MMOL/L (136-145); TOTAL PROTEIN 7.2 G/DL (5.7-8.2); TRIGLYCERIDES LEVEL 291 MG/DL (<150)
[2024-05-14 15:59] LABS: FREE T4 1.28 NG/DL (0.89-1.76)
[2024-05-14 16:00] LABS: THYROID STIMULATING HORMONE 2.359 uIU/ML (0.55-4.78); TOTAL 25(OH) VITAMIN D 22.8 NG/ML (20.0-100.0); VITAMIN B12 LEVEL 690 PG/ML (211-911)
[2024-05-14 16:06] LABS: HEMOGLOBIN A1c 7.1 % (4.0-6.0)
== END ==
LOC: M PLALAB 12:15
PROVIDERS: ATTEND Internal Medicine Hematology
DX: E11.9 Type 2 diabetes mellitus without complications (principal)

== ENCOUNTER 2024-07-20 07:25 | Day surgery (SDC) | payer OTHER ==
[~2024-07-20] VITALS: Ht 172.7 cm; Wt 99.3 kg
[~2024-07-20 07:25] MED LIST changes: +ARIP20TA51 PO; +METF-838 PO; +SEMA0.257 SQ; +TADA20TA PO; +VIBE75TA PO; +VICT18IN2 SC
[2024-07-20] MEDS ORDERED: LIDOCAINE 2% 100MG/5ML SDV (FOR ANES.) As Ordered ONE (08:53)
[2024-07-20] MEDS ORDERED: propofoL 200 MG/20 ML VIAL As Ordered ONE (08:53)
[2024-07-20 09:46] VITALS: TEMP 95.8
[2024-07-20 10:04] VITALS: BP 102/65; O2SAT 95
== END 2024-07-20 10:36 | disposition home or self-care (01) ==
LOC: M OPP 07:25
PROVIDERS: ATTEND Surgery
DX: Z12.11 Encounter for screening for malignant neoplasm of colon (principal); K63.5 Polyp of colon; I10 Essential (primary) hypertension; E11.40 Type 2 diabetes mellitus with diabetic neuropathy, unspecified; K21.9 Gastro-esophageal reflux disease without esophagitis; M19.90 Unspecified osteoarthritis, unspecified site; F41.9 Anxiety disorder, unspecified; F31.9 Bipolar disorder, unspecified; F17.200 Nicotine dependence, unspecified, uncomplicated; F12.20 Cannabis dependence, uncomplicated; Z88.1 Allergy status to other antibiotic agents; Z88.8 Allergy status to other drugs, medicaments and biological substances; Z79.4 Long term (current) use of insulin; Z79.84 Long term (current) use of oral hypoglycemic drugs; Z79.899 Other long term (current) drug therapy

== ENCOUNTER → 2024-08-08 | Outpatient (CLI) | payer OTHER ==
[2024-08-08 14:38] LABS: BASO % 0.6 % (0.0-1.0); EOS % 0.5 % (0.0-3.0); HEMATOCRIT 46.7 % (42.0-52.0); HEMOGLOBIN 15.9 g/dl (13.5-17.5); LYMPH # 3.8 10^3/uL (1.5-5.0); LYMPH % 57.9 % (24.0-44.0); MEAN CORPUSCULAR HEMOGLOBIN 31.4 pg (27.0-33.0); MEAN CORPUSCULAR VOLUME 92.3 fl (80.0-96.0); MONO % 15.6 % (2.0-8.0); NEUTROPHILS # 1.7 10^3/uL (1.5-8.5); NEUTROPHILS % 25.2 % (36.0-66.0); PLATELET COUNT, AUTOMATED 127 10^3/uL (150-450); RED BLOOD COUNT 5.06 10^6/uL (4.30-6.10); WHITE BLOOD COUNT 6.6 10^3/uL (4.0-10.0)
[2024-08-08 15:08] LABS: VALPROIC ACID (DEPAKOTE) 15.5 UG/ML (50.0-100.0)
[2024-08-08 15:19] LABS: BILIRUBIN,DIRECT 0.9 MG/DL (<0.4); BILIRUBIN,TOTAL 2.3 MG/DL (0.3-1.2); TOTAL PROTEIN 7.8 G/DL (5.7-8.2)
== END ==
LOC: M PLALAB 10:53
PROVIDERS: ATTEND Psychiatry & Neurology Psychiatry
DX: Z51.81 Encounter for therapeutic drug level monitoring (principal)

== ENCOUNTER → 2024-10-04 | Outpatient (CLI) | payer OTHER ==
[2024-10-04 15:54] LABS: HEMOGLOBIN A1c 6.1 % (4.0-6.0)
== END ==
LOC: M PLALAB 09:16
PROVIDERS: ATTEND Nurse Practitioner Family
DX: E11.40 Type 2 diabetes mellitus with diabetic neuropathy, unspecified (principal)

== ENCOUNTER → 2024-11-04 | Outpatient (REF) | payer OTHER | LOC: M SFHCPLAZ 18:24 | PROVIDERS: ATTEND Family Medicine | DX: Z13.228 Encounter for screening for other metabolic disorders (principal); Z83.49 Family history of other endocrine, nutritional and metabolic diseases; Z53.9 Procedure and treatment not carried out, unspecified reason ==

== ENCOUNTER → 2024-12-05 | Outpatient (CLI) | payer OTHER ==
[2024-12-05 17:40] LABS: ALBUMIN 4.2 G/DL (3.2-5.2); ALKALINE PHOSPHATASE 70 U/L (40-129); ALT/SGPT 28 U/L (7.0-40); AST/SGOT 34 U/L (<34); BILIRUBIN,TOTAL 1.8 MG/DL (0.3-1.2); BLOOD UREA NITROGEN 16 MG/DL (9-23); CALCIUM LEVEL 9.4 MG/DL (8.3-10.6); CARBON DIOXIDE LEVEL 33 MMOL/L (20-31); CHLORIDE LEVEL 99 MMOL/L (98-107); GLOMERULAR FILTRATION RATE > 90.0 (>49); GLUCOSE, FASTING 159 MG/DL (74-106); POTASSIUM SERUM 3.8 MMOL/L (3.5-5.1); SODIUM LEVEL 142 MMOL/L (136-145); TOTAL PROTEIN 7.4 G/DL (5.7-8.2)
== END ==
LOC: M PLALAB 14:30
PROVIDERS: ATTEND Psychiatry & Neurology Psychiatry
DX: F31.13 Bipolar disorder, current episode manic without psychotic features, severe (principal); F10.21 Alcohol dependence, in remission

== ENCOUNTER → 2024-12-05 | Outpatient (CLI) | payer OTHER ==
[2024-12-05 17:40] LABS: ALBUMIN 4.2 G/DL (3.2-5.2); ALKALINE PHOSPHATASE 70 U/L (40-129); ALT/SGPT 27 U/L (7.0-40); AST/SGOT 32 U/L (<34); BILIRUBIN,TOTAL 1.8 MG/DL (0.3-1.2); BLOOD UREA NITROGEN 15 MG/DL (9-23); CALCIUM LEVEL 9.4 MG/DL (8.3-10.6); CARBON DIOXIDE LEVEL 30 MMOL/L (20-31); CHLORIDE LEVEL 98 MMOL/L (98-107); CHOLESTEROL LEVEL 95 MG/DL (<200); CREATININE FOR GFR 0.78 MG/DL (0.70-1.30); GLOMERULAR FILTRATION RATE > 90.0 (>49); GLUCOSE, FASTING 159 MG/DL (74-106); HDL CHOLESTEROL 23.7 MG/DL (>40); LDL CHOLESTEROL 7.7 MG/DL (<100); NON-HDL-C 71.3 MG/DL; POTASSIUM SERUM 3.6 MMOL/L (3.5-5.1); SODIUM LEVEL 141 MMOL/L (136-145); TOTAL PROTEIN 7.3 G/DL (5.7-8.2); TRIGLYCERIDES LEVEL 318 MG/DL (<150)
[2024-12-05 18:12] LABS: CREATININE, URINE 90.5 MG/DL; MALB URINE SIEMENS < 3.0 MG/L
== END ==
LOC: M PLALAB 14:24
PROVIDERS: ATTEND Nurse Practitioner Family
DX: E11.40 Type 2 diabetes mellitus with diabetic neuropathy, unspecified (principal); E78.2 Mixed hyperlipidemia

== ENCOUNTER → 2025-02-14 | Outpatient (CLI) | payer OTHER | LOC: M RAD 07:17 | DX: Z13.6 Encounter for screening for cardiovascular disorders (principal) ==

== ENCOUNTER → 2025-05-22 | Outpatient (CLI) | payer MEDICARE ==
[~2025-05-22] MED LIST changes: +ZOLP10TA11; +ZOLP10TA11 PO; -ZOLP10TA2; -ZOLP10TA2 PO
[2025-05-22 14:16] LABS: ALT/SGPT 34 U/L (7.0-40); AST/SGOT 34 U/L (<34); CALCIUM LEVEL 9.6 MG/DL (8.3-10.6); CARBON DIOXIDE LEVEL 31 MMOL/L (20-31); CHLORIDE LEVEL 96 MMOL/L (98-107); CHOLESTEROL LEVEL 100 MG/DL (<200); CHOLESTEROL RISK RATIO 3.61 (<5); CREATININE FOR GFR 0.61 MG/DL (0.70-1.30); FREE T4 1.28 NG/DL (0.89-1.76); GLOMERULAR FILTRATION RATE > 90.0 (>49); LDL CHOLESTEROL 11.1 MG/DL (<100); NON-HDL-C 72.3 MG/DL; PLATELET COUNT, AUTOMATED 124 10^3/uL (150-450); POTASSIUM SERUM 3.7 MMOL/L (3.5-5.1); SODIUM LEVEL 139 MMOL/L (136-145); TRIGLYCERIDES LEVEL 306 MG/DL (<150)
== END ==
LOC: M PLALAB 10:21
PROVIDERS: ATTEND Nurse Practitioner Family
DX: E11.40 Type 2 diabetes mellitus with diabetic neuropathy, unspecified (principal)

== ENCOUNTER → 2025-05-30 | Outpatient (CLI) | payer MEDICARE | LOC: M PLALAB 13:53 | PROVIDERS: ATTEND Physician Assistant | DX: Z12.5 Encounter for screening for malignant neoplasm of prostate (principal) ==

== ENCOUNTER → 2025-05-30 | Outpatient (CLI) | payer MEDICARE | LOC: M PLALAB 13:51 | PROVIDERS: ATTEND Psychiatry & Neurology Psychiatry | DX: Z79.899 Other long term (current) drug therapy (principal) ==